=== PATIENT | male | born 1965 | race Hispanic/Latino ===

== ENCOUNTER 2025-05-02 11:36 | Inpatient (IN) | payer BC, OTHER ==
[2025-05-02] VITALS (17 sets, daily range): BP systolic 154–199; BP diastolic 68–95; PULSE 104–113; RESP 14–29; TEMP 99.1; O2SAT 98
[~2025-05-02] VITALS: Ht 160 cm; Wt 67.0 kg
[2025-05-02 12:41] LABS: IMMATURE GRANULOCYTE ABSOLUTE 0.39 K/uL (0-1); NUCLEATED RED BLOOD CELLS 0.1 % (0.0-0.19); PLATELET COUNT (AUTO) 329 K/uL (130-400); RED BLOOD CELL COUNT(AUTO) 2.34 MIL/uL (4.50-6.20); RED CELL DISTRIBUTION WIDTH 15.6 % (11.0-15.5)
[2025-05-02] MEDS: 0.9%NACL 1000ML 1,000 ML IV ONE (12:58)
[2025-05-02 12:59] LABS: ASPARTATE AMINOTRANSFERASE 27.0 U/L (10-37); CREATINE KINASE, TOTAL 105.0 U/L (21-232); GLOMERULAR FILTR. RATE CALC 6.0 mL/min (>90); GLUCOSE,RANDOM 79.0 mg/dL (70-105); SODIUM SERUM 139.0 mmol/L (136-145); TOTAL PROTEIN, SERUM 6.3 g/dL (6.0-8.3)
[2025-05-02 13:07] LABS: CREATININE 9.0 mg/dL (0.5-1.3); UREA NITROGEN, BLOOD 127.0 mg/dL (7-18)
[2025-05-02 13:17] LABS: WHITE BLOOD COUNT (AUTO) 64.0 K/uL (4.8-10.8)
[2025-05-02 13:31] LABS: BAND NEUTROPHILS % (MANUAL) 1 % (0-2); LYMPHOCYTES % (MANUAL) 77 % (22-44); MAN.DIFF COMMENT-IMPRESSION MANUAL DIFFERENTIAL; MONOCYTES % (MANUAL) 2 % (2-9); SEGMENTED NEUTROPHILS % 20 % (40-70)
[2025-05-02 13:32] LABS: PLATELET MORPHOLOGY COMMENT ADEQUATE; WBC MORPHOLOGY SMUDGE CELLS 2+
[2025-05-02 13:36] LABS: APPEARANCE,URINE CLOUDY (CLEAR); GLUCOSE, URINE (UA) NEGATIVE (NEGATIVE); LEUKOCYTE ESTERASE ,URINE NEGATIVE Leu/uL (NEGATIVE); NITRATE,URINE NEGATIVE (NEGATIVE); OCCULT BLOOD,URINE +- (TRACE) (NEGATIVE)
[2025-05-02 13:56] LABS: ADD UA MICROSCOPIC YES
--- NOTE | 2025-05-02 13:58 | HMCIMG ---
EXAM: CR Chest, 1 View. CLINICAL HISTORY: [facility] COMPARISON: None provided. FINDINGS: LUNGS: There is no mass, infiltrate, or acute pulmonary abnormality. PLEURAL SPACES: No pleural effusion or pneumothorax. MEDIASTINUM: Cardiac size and mediastinal contours within normal limits. BONES: No acute osseous abnormality. IMPRESSION: No acute cardiopulmonary pathology is evident. /[place]
[2025-05-02] MEDS ORDERED: GLUCAGON 1MG KIT 1 MG ML IM PRN (14:30)
[2025-05-02 14:44] LABS: ABG OXYGEN SATURATION 91.3 % (94.0-98.0); BASE EXCESS,VENOUS BLOOD GAS -15.2 (-2.0-3.0); HCO3,VENOUS BLOOD GAS 10.1 (22.0-29.0); PCO2,VENOUS BLOOD GAS 22 (38-54); PH,VENOUS BLOOD GAS 7.275 (7.320-7.430); PO2,VENOUS BLOOD GAS 65.5 mmHg (23.0-48.0); TEMPERATURE, CELSIUS BG 37.0 CELSIUS (35.5-37.0); VENT MODE, BG VBG (ROOM AIR)
[2025-05-02 14:46] LABS: INR 1.0 (0.85-1.15)
[2025-05-02 14:49] LABS: LACTATE DEHYDROGENASE 270.0 U/L (81-234); PHOSPHORUS 8.1 mg/dL (2.5-4.9)
[2025-05-02] MEDS: DEXTROSE 50%-WATER 50 ML DISP.SYRIN IV PRN (14:55)
[2025-05-02] MEDS: THIAMINE HCL 100 MG/ML 2ML VIAL IVP SCH (14:56)
[2025-05-02] MEDS: ZOSYN 3.375GM +NS 50ML IV STA (14:56)
[2025-05-02] MEDS ORDERED: PHARMACY COMMUNICATION MISC SCH (15:00)
--- NOTE | 2025-05-02 15:00 | NUR ---
REPORT GIVEN TO CURTIS RODRIGUEZ RN PENDING HEMATOLOGY CALL BACK
[2025-05-02 15:08] LABS: CREATININE,URINE RANDOM 72.92 mg/dL (30-135)
[2025-05-02] MEDS ORDERED: GLIP5TAB15 PO (15:30)
[2025-05-02] MEDS ORDERED: TAMS-55 PO (15:30)
[2025-05-02] MEDS ORDERED: TORS20TA4 PO (15:30)
[2025-05-02] MEDS ORDERED: LINEZOLID 600 MG/ISO-OSM 300 ML IV SCH (15:30)
[2025-05-02] MEDS ORDERED: CLOP-31 PO (15:30)
[2025-05-02] MEDS ORDERED: ATOR40TA69 PO (15:30)
[2025-05-02] MEDS: SODIUM BICARB 8.4% 50ML SYRING 150 MEQ in DEXTROSE 5%-WATER 1,000 ML IVP SCH (15:34)
[2025-05-02 16:11] LABS: IMMATURE GRANULOCYTE ABSOLUTE 0.30 K/uL (0-1); NUCLEATED RED BLOOD CELLS 0.1 % (0.0-0.19); PLATELET COUNT (AUTO) 290 K/uL (130-400); RED BLOOD CELL COUNT(AUTO) 2.11 MIL/uL (4.50-6.20); RED CELL DISTRIBUTION WIDTH 15.7 % (11.0-15.5)
[2025-05-02 16:15] LABS: WHITE BLOOD COUNT (AUTO) 53.9 K/uL (4.8-10.8)
[2025-05-02 16:23] LABS: ERYTHROCYTE SEDIMENTATION RATE 2 MM/HR (0-20)
[2025-05-02 16:40] LABS: BAND NEUTROPHILS % (MANUAL) 4 % (0-2); EOSINOPHILS % (MANUAL) 1 % (1-6); LYMPHOCYTES % (MANUAL) 83 % (22-44); MAN.DIFF COMMENT-IMPRESSION MANUAL DIFFERENTIAL; PLATELET MORPHOLOGY COMMENT ADEQUATE; SEGMENTED NEUTROPHILS % 12 % (40-70)
[2025-05-02 16:41] LABS: WBC MORPHOLOGY SMUDGE CELLS 2+
--- NOTE | 2025-05-02 16:41 | HMCIMG ---
EXAM: CT Abdomen and Pelvis without Intravenous Contrast CLINICAL HISTORY: Acute on chronic renal failure, severe leukocystosis, concern for sepsis. TECHNIQUE: Axial computed tomography images of the abdomen and pelvis without intravenous contrast. Dose reduction technique was used including one or more of the following: automated exposure control, adjustment of mA and kV according to patient size, and/or iterative reconstruction. CONTRAST: None. COMPARISON: None provided. FINDINGS: LUNG BASES: No basilar airspace consolidation or pleural effusion. LIVER: Liver is normal in size measuring 9 cm in CC dimension. No focal or diffuse hepatic lesion seen. GALLBLADDER AND BILE DUCTS: Unremarkable. No calcified stone. No ductal dilation. PANCREAS: Unremarkable. SPLEEN: Spleen is normal in size with splenic index of 360. ADRENAL GLANDS: Unremarkable. KIDNEYS, URETERS, AND BLADDER: Bilateral kidneys are normal in size. Few small calculi are noted in right kidney at upper and mid pole of about 2-3 mm. Few calculi are seen in left kidney of 2-3 mm, with largest in left pelviureteric junction measures about 4.2 mm. Mild perinephric fat strandings are seen. No hydronephrosis. No bladder calculi. STOMACH AND BOWEL: Mild short segment circumferential thickening of descending colon is noted with single wall thickness measuring upto 8.2 mm. No obstruction. No CT evidence of colitis or acute diverticulitis. APPENDIX: No CT evidence for appendicitis. PERITONEUM: No free fluid. No free air. LYMPH NODES: Multiple enlarged discrete and conglomerate emilia masses are seen throughout the central abdomen, more concentrated in the para-aortic and paracaval regions where these forming confluent emilia masses. Nodes are homogeneous in attenuation, without central necrosis or calcification. Cranial extent of the para-aortic conglomerate masses starts just at the level of origin of renal vessels with caudal extent till aortic bifurcation. The emilia conglomerates measure approximately 12.4 cm on right and 13.0 cm on left para-aortic region in craniocaudal extent, and 6.5 x 5.6 cm on right and 6.5 x 5.2 cm on left in AP x TR dimensions, indicating bulky disease. Multiple other discrete enlarged abdominal and retroperitoneal lymph nodes are also demonstrated, largest in gastrohepatic ligament measures 2.4 cm, at nima hepatis 2.6 cm, retropancreatic 1.5 cm, along right common iliac 2.3 cm, left common iliac 2.6 cm, right external iliac 1.7 cm and left external iliac 4.3 cm in short axis dimension. Multiple mesenteric lymph nodes are seen, largest in short axis measures 2.6 cm. Distribution is typical for lymphoma, involving the retroperitoneal emilia chains and extending inferiorly toward the iliac regions. The mass effect displaces adjacent structures but does not show invasive destruction, which further supports a lymphomatous process. No obvious organ invasion is seen. Solid organs appear relatively preserved. The imaging appearance is most suggestive of bulky retroperitoneal emilia disease, highly compatible with lymphoma likely non-Hodgkin lymphoma rather than metastatic adenopathy, given the size, homogeneity, and emilia distribution. REPRODUCTIVE: Unremarkable as visualized. VASCULATURE: Thick atheromatous intimal calcified plaques are seen involving descending abdominal aorta and its bifurcation. No aortic aneurysm. ABDOMINAL WALL AND SOFT TISSUES: Unremarkable. BONES: Anterior wedge compression fracture of T12 is seen. Degenerative changes with vacuum phenomenon noted at L4-L5 and L5-S1 levels. IMPRESSION: 1. Bulky retroperitoneal, mesenteric, gastrohepatic/nima hepatis, and iliac emilia disease, highly compatible with lymphoproliferative disorder with possible differential of lymphoma (e.g., non-Hodgkin lymphoma) rather than metastatic adenopathy, given the size, homogeneity, and emilia distribution. Contrast enhanced CT chest abdomen pelvis and histopathology correlation is suggested. 2. Mild short segment circumferential thickening of the descending colon, likely indicative of focal colitis. 3. Compression fracture of T12. 4. Degenerative changes with vacuum phenomenon at L4-L5 and L5-S1. 5. Bilateral renal calculi with perinephric fat strandings. /[place]
--- NOTE | 2025-05-02 16:48 | ERN ---
ED Note History of Present Illness Stated Complaint: SEVERE LEUKOCYTOSIS, CECILY ON CKD, EMTABOLIC ACIDOSI Chief Complaint: Hypoglycemia Time Seen by MD: 11:37 Dictation: 59 year-old male presenting to the emergency department with generalized weakness and low blood sugar by EMS patient reports he is a non-insulin dependent diabetic who has not been feeling well for the past few weeks and at worse this morning having chills generalized weakness Allergies: Coded Allergies: No Known Drug Allergies (Unverified Allergy, Unknown, 12/27/15) Home Meds Reported Medications Torsemide (Torsemide) 20 Mg Tablet, 1 TAB PO DAILY for 30 Days, #30 TAB 0 Refills 05/02/25 Glipizide (Glipizide) 5 Mg Tablet, 2 TAB PO DAILY for 30 Days, #30 TAB 0 Refills 05/02/25 Tamsulosin HCl (Flomax) 0.4 Mg Cap.er.24h, 0.4 MG PO DAILY, CAPSULE.DR 05/02/25 Clopidogrel Bisulfate (Plavix) 75 Mg Tablet, 1 TAB PO DAILY for 30 Days, #30 TAB 0 Refills 05/02/25 Atorvastatin Calcium (LIPITOR) 40 Mg Tablet, 1 TAB PO DAILY for 30 Days, #30 TAB 0 Refills 05/02/25 Past Medical History Past Medical History: Diabetes-Type II, High Cholesterol, Hypertension Surgical History: None Review of System Dictation Constitutional: Per HPI Eyes: Negative for injury, pain,redness, and discharge ENT: Negative for injury,pain or swelling Cardiovascular: Negative for chest pain, palpitations, and edema Respiratory: Negative for shortness of breath, cough, and wheezing, Abdomen/GI: Negative for abdominal pain, nausea, vomiting, diarrhea, and constipation Back: Negative for injury and pain : Negative for injury, bleeding and discharge MS/Extremity: Negative for injury and deformity Skin: Negative for rash, and discoloration Neuro: Per HPI Initial Vital Sign VS Vital Signs Date Time Temp Pulse Resp B/P (MAP) Pulse Ox O2 Delivery O2 Flow Rate FiO2 05/02/25 11:38 98.2 120 18 177/79 98 Room Air 0 05/02/25 12:40 21 Physical Exam Dictation General: awake, alert, appears ill, afebrile Head/Face: Normocephalic, atraumatic Eyes: PERRL, EOMI, vision at baseline ENT: oral cavity clear, TMs clear, no signs of infection Neck: Trachea midline, supple, no nuchal rigidity Cardiovascular: RRR, normal S1/S2, No MRGs, no JVD Respiratory: CTAB, no respiratory distress, No rales or wheezes Abdomen: Soft, non-tender, non-distended, normal bowel sounds, no guarding or rebound. Skin: Warm, dry, normal turgor, no rash MS/Extremity: Pulses equal, no cyanosis, neurovascular intact, FROM Neuro: COAx4, GCS 15, strength 5/5, CN 2-12 intact, normal cerebellar exam, no rmal gait, Psych: Normal behavior, mood, and affect normal Results (Laboratory/Radiology) Laboratory/Radiology Laboratory Tests Test 05/02/25 11:39 05/02/25 12:37 05/02/25 13:20 05/02/25 14:19 Whole Blood Glucose 103 MG/DL (70-110) 35 MG/DL (70-110) #*L Bedside Glucose Comment Notified Nurse White Blood Count 64.0 K/uL (4.8-10.8) *H Red Blood Count 2.34 MIL/uL (4.50-6.20) L Hemoglobin 7.2 g/dL (14.0-18.0) L Hematocrit 23.2 % (42-54) L Mean Corpuscular Volume 99.1 fL (79-99) H Mean Corpuscular Hemoglobin 30.8 pg (27.0-33.0) Mean Corpuscular Hemoglobin Concent 31.0 g/dL (32.0-36.0) L Red Cell Distribution Width 15.6 % (11.0-15.5) H Platelet Count 329 K/uL (130-400) Mean Platelet Volume 8.7 fL (7.5-10.5) Immature Granulocyte % (Auto) 0.6 % (0-1) Neutrophils (%) (Auto) 11.4 % (40.0-77.0) L Lymphocytes (%) (Auto) 82.1 % (21.0-51.0) H Monocytes (%) (Auto) 5.5 % (3.0-13.0) Eosinophils (%) (Auto) 0.3 % (0.0-8.0) Basophils (%) (Auto) 0.1 % (0.0-5.0) Neutrophils # (Auto) 7.3 K/uL (1.8-7.7) Lymphocytes # (Auto) 52.6 K/uL (1.0-4.8) H Monocytes # (Auto) 3.6 K/uL (0.1-1.0) H Eosinophils # (Auto) 0.17 K/uL (0.00-0.70) Basophils # (Auto) 0.05 K/uL (0.00-0.20) Absolute Immature Granulocyte (auto 0.39 K/uL (0-1) Segmented Neutrophils % 20 % (40-70) L Band Neutrophils % 1 % (0-2) Lymphocytes % (Manual) 77 % (22-44) H Monocytes % (Manual) 2 % (2-9) Nucleated Red Blood Cells 0.1 % (0.0-0.19) Differential Comment MANUAL DIFFERENTIAL White Cell Morphology Comment SMUDGE CELLS 2+ Platelet Morphology Comment ADEQUATE Red Blood Cell Morphology See comments Prothrombin Time 10.6 SEC (9.6-11.6) Prothromb Time International Ratio 1.00 (0.85-1.15) Activated Partial Thromboplast Time 24.9 SEC (26.3-35.5) L Fibrinogen 409 mg/dL (180-350) H D-Dimer Quantitative (PE/DVT) 857 ng/mL (0-500) *H Sodium Level 139 mmol/L (136-145) Potassium Level 5.2 mmol/L (3.5-5.1) H Chloride Level 109 mmol/L (101-111) Carbon Dioxide Level 13 mmol/L (21-32) L Blood Urea Nitrogen 127 mg/dL (7-18) *H Creatinine 9.0 mg/dL (0.5-1.3) *H Glomerular Filtration Rate Calc 6 mL/min (>90) Random Glucose 79 mg/dL (70-105) Lactic Acid Level 1.0 mmol/L (0.8-2.5) Uric Acid 9.5 mg/dL (2.6-7.2) H Total Calcium 8.2 mg/dL (8.5-10.1) L Phosphorus Level 8.1 mg/dL (2.5-4.9) H Total Bilirubin 0.3 mg/dL (0.2-1.0) Direct Bilirubin 0.1 mg/dL (0.0-0.3) Aspartate Amino Transf (AST/SGOT) 27 U/L (10-37) Alanine Aminotransferase (ALT/SGPT) 24 U/L (12-78) Alkaline Phosphatase 121 U/L (50-136) Lactate Dehydrogenase 270 U/L (81-234) H Total Creatine Kinase 105 U/L (21-232) # Troponin I High Sensitivity 50 ng/L (4-75) C-Reactive Protein, Quantitative 0.90 mg/L (0.5-3.0) Total Protein 6.3 g/dL (6.0-8.3) Albumin 3.5 g/dL (3.5-5.0) Procalcitonin 0.19 ng/mL (0.05-0.5) Urine Color COLORLESS (YELLOW) Urine Appearance CLOUDY (CLEAR) H Urine pH 5.5 (5.0-8.0) Urine Specific [place] 1.010 (1.001-1.031) Urine Protein 70 mg/dL (NEGATIVE) H Urine Glucose (UA) NEGATIVE mg/dL (NEGATIVE) Urine Ketones NEGATIVE mg/dL (NEGATIVE) Urine Occult Blood +- (TRACE) (NEGATIVE) H Urine Nitrate NEGATIVE (NEGATIVE) Urine Bilirubin NEGATIVE mg/dL (NEGATIVE) Urine Urobilinogen 0.2 mg/dL (0.2-1.0) Urine Leukocyte Esterase NEGATIVE Rogelio/uL Urine RBC 2-5 /HPF (0-1) H Urine WBC 2-5 /HPF (0-1) H Urine Bacteria None /HPF (None Seen) Urine Random Creatinine 72.92 mg/dL (30-135) Urine Random Sodium 45 mmol/l (40-220) Test 05/02/25 14:42 05/02/25 15:36 05/02/25 16:00 Blood Gas Specimen Type Venous Arterial Blood Oxygen Saturation 91.3 % (94.0-98.0) L Venous Blood pH 7.275 (7.320-7.430) Venous Blood pCO2 at Patient Temp 22 (38-54) L Venous Blood pO2 at Patient Temp 65.5 mmHg (23.0-48.0) H Venous Blood HCO3 10.1 (22.0-29.0) L Venous Blood Base Excess -15.2 (-2.0-3.0) L Venous Blood Total Hemoglobin 7.5 (13.5-17.5) L Sodium (Blood Gas) 139 MMOL/L (136-145) Bedside Potassium (Blood Gas) 5.2 MMOL/L (3.4-4.5) H Bedside Chloride (Blood Gas) 118 MMOL/L (98-107) H Bedside Glucose (Blood Gas) 38 MG/DL (65-95) *L Bedside Ionized Calcium (Blood Gas) 1.12 MMOL/L (1.15-1.33) L Bedside Lactic Acid (Blood Gas) 0.90 MMOL/L (0.36-0.75) H Blood Gas Temperature 37.0 CELSIUS (35.5-37.0) Blood Gas Vent Mode VBG (ROOM AIR) FiO2 21.0 % Blood Gas Specimen Comment VBGJULIE Whole Blood Glucose 133 MG/DL (70-110) #H Bedside Glucose Comment Notified Nurse White Blood Count 53.9 K/uL (4.8-10.8) *H Red Blood Count 2.11 MIL/uL (4.50-6.20) L Hemoglobin 6.6 g/dL (14.0-18.0) *L Hematocrit 21.0 % (42-54) *L Mean Corpuscular Volume 99.5 fL (79-99) H Mean Corpuscular Hemoglobin 31.3 pg (27.0-33.0) Mean Corpuscular Hemoglobin Concent 31.4 g/dL (32.0-36.0) L Red Cell Distribution Width 15.7 % (11.0-15.5) H Platelet Count 290 K/uL (130-400) Mean Platelet Volume 8.9 fL (7.5-10.5) Immature Granulocyte % (Auto) 0.6 % (0-1) Neutrophils (%) (Auto) 11.2 % (40.0-77.0) L Lymphocytes (%) (Auto) 82.4 % (21.0-51.0) H Monocytes (%) (Auto) 5.5 % (3.0-13.0) Eosinophils (%) (Auto) 0.2 % (0.0-8.0) Basophils (%) (Auto) 0.1 % (0.0-5.0) Neutrophils # (Auto) 6.0 K/uL (1.8-7.7) Lymphocytes # (Auto) 44.4 K/uL (1.0-4.8) H Monocytes # (Auto) 3.0 K/uL (0.1-1.0) H Eosinophils # (Auto) 0.11 K/uL (0.00-0.70) Basophils # (Auto) 0.06 K/uL (0.00-0.20) Absolute Immature Granulocyte (auto 0.30 K/uL (0-1) Nucleated Red Blood Cells 0.1 % (0.0-0.19) Erythrocyte Sedimentation Rate 2 MM/HR (0-20) Labs Reviewed?: Yes EKG: (+) NSR, (+) rhythm, (+) nonspecific ST T wave chg, (+) nonspecific ST T wave chg, (+) unchanged EKG Comment: Heart rate 112 sinus tachycardia no STEMI X-RAY Comment: Clear chest x-ray no acute process noted ED Course ED Course Orders Procedure Category Date Status Time 12 Lead Ekg Tracing- EKG 05/02/25 Logged Technical 12:05 Basic Metabolic Panel LAB 05/02/25 Complete 12:05 Blood Cult PATRICIA 05/02/25 In Process 12:05 Cbc With Differential LAB 05/02/25 In Process 12:05 Hepatic Function Panel LAB 05/02/25 Complete 12:05 Creatine Kinase, Total LAB 05/02/25 Complete 12:05 Lactic Acid LAB 05/02/25 Complete 12:05 Troponin I High LAB 05/02/25 Complete Sensitivity 12:05 Urinalysis Profile LAB 05/02/25 Complete 12:05 Chest 1vw RAD 05/02/25 Resulted 12:05 0.9%Nacl 1000ml (Ns PHA 05/02/25 Complete 1000ml) 12:30 Manual Differential LAB 05/02/25 In Process 12:37 Zosyn 3.375gm+Ns 50ml PHA 05/02/25 Complete (Zosyn 3.375gm+Ns 13:35 Admit Orders ADM 05/02/25 Transmitted 14:27 Initiate Hypoglycemia PAULETTE 05/02/25 In Process Protocol 14:27 Dextrose 50%-Water PHA 05/02/25 In Process (D50w) 14:30 Glucagon 1mg Kit PHA 05/02/25 In Process (Glucagon 1mg Kit) 14:30 Thiamine Hcl (Vitamin PHA 05/02/25 In Process B-1) 14:30 Cbc With Differential LAB 05/02/25 In Process 14:29 Pt And Ptt LAB 05/02/25 Complete 14:29 Erythrocyte Sed Rate LAB 05/02/25 In Process 14:29 Crp Quantitative LAB 05/02/25 Complete 14:29 Procalcitonin LAB 05/02/25 Complete 14:29 Lactate Dehydrogenase LAB 05/02/25 Complete 14:29 Uric Acid LAB 05/02/25 Complete 14:29 Phosphorus LAB 05/02/25 Complete 14:29 Type And Screen BBK 05/02/25 In Process 14:32 Nephrology Consult CONPHYS 05/02/25 Transmitted 14:33 Hematology Consult CONPHYS 05/02/25 Transmitted 14:33 Dextrose 5%-Water PHA 05/02/25 In Process (... W/Sodium Bicarb 8 15:00 Venous Blood Gas + RT 05/02/25 Transmitted 14:34 Critcal Care Consult [facility] 05/02/25 Transmitted 14:35 Hemoglobin And LAB 05/02/25 Logged Hematocrit 19:00 Hemoglobin And LAB 05/03/25 Verified Hematocrit 01:00 Pantoprazole 40mg Inj PHA 05/02/25 In Process (Protonix 40mg Inj 15:00 Pharmacy PHA 05/02/25 Complete Communication 15:00 Fibrinogen LAB 05/02/25 Complete 14:41 D-Dimer LAB 05/02/25 Complete 14:41 Hydralazine 20mg Inj PHA 05/02/25 In Process (Apresoline 20mg In 15:00 *Nursing CPOE 05/02/25 Transmitted Communication: 14:42 Venous Blood Gas Plus LAB 05/02/25 Complete 14:42 Acetaminophen 325 Tab PHA 05/02/25 In Process (Tylenol 325mg Tab 15:00 Ondansetron 4mg Inj PHA 05/02/25 In Process (Zofran 4mg Inj) 15:00 Us Renal Sonogram US 05/02/25 Taken 14:44 Urine Sodium,Random LAB 05/02/25 Complete 14:44 Urine Creatinine LAB 05/02/25 Complete Random 14:44 Urea Nitrogen, Urine LAB 05/02/25 In Process Random 14:44 *Nursing CPOE 05/02/25 Transmitted Communication: 14:46 Folic Acid/Vitamin B PHA 05/03/25 In Process Comp W-C (Nephrovit 09:00 Daily Fluid Intake CPOE 05/02/25 Transmitted Restriction 14:46 Strict I&O CPOE 05/02/25 Transmitted 14:46 Daily Weights CPOE 05/02/25 Transmitted 14:46 Aleida (Direct) BBK 05/02/25 Complete 14:48 Vital Signs(Adult CPOE 05/02/25 Transmitted Hospitalist) 14:51 Oxygen By Nc/Pulse Ox CPOE 05/02/25 Transmitted 14:51 I&O Q Shift CPOE 05/02/25 Transmitted 14:51 Nurse To Enter Home CPOE 05/02/25 Transmitted Medication 14:51 Condition: CPOE 05/02/25 Transmitted 14:51 Telemetry Monitoring CPOE 05/02/25 Transmitted 14:51 Activity: Bed Rest CPOE 05/02/25 Transmitted 14:51 Clear Liquid DIET 05/02/25 Transmitted Dinner Apply Scds CPOE 05/02/25 Transmitted 14:51 Ct Abdomen/Pelvis W/O CT 05/02/25 Taken Contrast 14:51 Linezolid 600 PHA 05/02/25 Complete Mg/Iso-Osm (Zyvox 600 15:30 Meropenem 1gm (Merrem PHA 05/02/25 In Process 1gm) 18:00 Linezolid 600 PHA 05/02/25 In Process Mg/Iso-Osm (Zyvox 600 19:00 Nurse Driven Doss PAULETTE 05/02/25 In Process Removal Pro 16:10 Maintain Doss CPOE 05/02/25 Transmitted 16:10 Tamsulosin Hcl PHA 05/02/25 In Process (Flomax) 16:30 Atorvastatin 40mg PHA 05/03/25 In Process (Lipitor 40mg) 09:00 Manual Differential LAB 05/02/25 In Process 16:00 Current Medications Medications (Trade) Dose Ordered Sig/Álvaro Route PRN Reason Start Time Stop Time Status Last Admin Dose Admin Piperacillin Sod/ Tazobactam Sod (Zosyn 3.375gm+NS 50ml) 3.375 gm ONCE STAT IV 05/02/25 13:35 05/02/25 13:41 DC 05/02/25 14:56 Sodium Chloride 1,000 ml @ 0 mls/hr ONCE ONCE IV 05/02/25 12:30 05/02/25 12:31 DC 05/02/25 12:58 Vital Signs Date Time Temp Pulse Resp B/P (MAP) Pulse Ox O2 Delivery O2 Flow Rate FiO2 05/02/25 15:02 98.6 120 18 140/83 98 Room Air* 0 05/02/25 14:41 98.6 118 18 123/79 98 Room Air* 0 05/02/25 13:27 98.6 125 18 142/95 99 Room Air* 0 05/02/25 12:40 98.2 120 18 145/67 99 Room Air* 0 05/02/25 11:38 98.2 120 18 177/79 98 Room Air 0 Medical Decision Making MDM MDM: Differential diagnosis: Rationale: Tests considered and ordered secondary to shared decision making include: labs, ECG and radiology Previous outside records reviewed: Old ER visits. Risk of complication and/or morbidity or mortality of patient management: None Medications-Per medication reconciliation Need for hospitalization: Patient does meet criteria for hospitalization. Need for emergency major/minor surgery: No There are no social concerns with this patient. Prescription drug management Prescriptions will include symptomatic care Patient's prior external medical records from other ER visits were reviewed by me as indicated. Prior testing and results from previous visits were reviewed. Prior tests were taken into account with medical decision making and resource utilization, independent historian/historians were used to obtain complete medical history. I independently interpreted the test that were performed, results were reviewed by me and considered findings on radiology if ordered. Medical management and examination interpretation discussions were had by me with other qualified healthcare professionals as indicated for the patient's care. 59-year-old [place], [place] [id number] concern for blast crisis versus severe sepsis, started on IV fluids antibiotics admitting for further care and evaluation hospitalist team consulted. Critical Care Note Comment(s) Total critical care time was 33 minutes. Excluding time for procedures. Management of critically ill patient with concern for acute decompensation. Management included interpretation of laboratory values and imaging, hemodynamics, time for consultation with consultants and admitting physician. DX & DISP Disposition: Inpatient Departure Impression: Primary Impression: SIRS (systemic inflammatory response syndrome) Additional Impressions: Acute renal failure, Leukocytosis Condition: Stable Referrals: MOR SCOTT (PCP) LEIDA ARIZA MD May 02, 2025 16:48
--- NOTE | 2025-05-02 17:17 | HP ---
[facility] HISTORY AND PHYSICAL Date of Service: May 02, 2025 Time of Service: 17:03 HISTORY OF PRESENT ILLNESS: Date of service: 05/02/2025, patient was seen in ER [facility] This is a 59-year-old male with underlying history of chronic kidney disease, previous history of CLL in 2017 status post chemotherapy in [place], [place], history of stroke in 2016 on chronic outpatient treatment with Plavix, type 2 d iabetes mellitus, BPH, hyperlipidemia, who presented to the ER for further evaluation of generalized malaise and low blood sugar. Patient states that he was feeling weak today and EMS was called who noticed that his blood sugar was in the 40s. Patient was brought to the ER for further evaluation of severe hypoglycemia. Patient feels that he has been having malaise and not feeling well today. He takes glipizide 5 mg b.i.d. for management of type 2 diabetes mellitus. He gets about 1-2 episodes of hypoglycemia in a month. Patient reports having previous history of CLL which was treated in [place] previously with chemotherapy. He is currently followed by Dr. Forde with Hematology as outpatient. Patient denies episodes of active bleeding, denies melena, hematochezia or hematemesis. Denies any hematuria. Denies any dysuria either. [place] [id number] [place] September of this year on follow up as outpatient with Hematology. Patient has underlying history of CKD and is followed by Dr. Llanos as outpatient. He has been maintained on torsemide 20 mg daily. On presentation to the hospital, patient was noted to be afebrile with T-max of 98.2 F, heart rate of 120, blood pressure 177/79. Labs on presentation [place] [address] which was [place] [id number] with significant lymphocytosis close to 82%. Hemoglobin was noted to be at 6.6 on repeat labs and platelet count of [id number]. Coagulation panel was noted to be normal. BMP on presentation significant for sodium 139, potassium 5.2, chloride of 109, bicarb 13, BUN of 127, creatinine 9.0, uric acid was noted to be elevated at 9.5 with phosphorus 8.1, LDH of 270. Patient will be admitted for further management of acute on chronic renal failure with significant leukocytosis, progressive anemia. and underlying metabolic acidosis. Patient will be admitted to ICU and condition remains critical. We will request urgent consultation with Hematology for further evaluation. Patient will recei ve PRBC transfusion, broad-spectrum antibiotics and we will be initiated on sodium bicarb gtt. REVIEW OF SYSTEMS CONSTITUTIONAL: Malaise, chills and low sugars NEUROLOGICAL: Denies headache, amaurosis fugax, motor weakness, sensory deficit, vertigo/spinning sensation, gait abnormalities, or tremors. ENT: No hearing loss, otalgia, otorrhea, rhinitis, rhinorrhea, hoarseness, or sore throat. CARDIOVASCULAR: Denies any exertional angina, dyspnea on exertion, orthopnea, paroxysmal nocturnal dyspnea, palpitations, life-threatening arrhythmias, claudication. PULMONARY: Denies any shortness of breath, cough, phlegm/sputum, hemoptysis, pleuritic chest pain. SLEEP: Denies morning headaches, daytime somnolence or napping. Denies difficulty falling asleep, staying asleep, waking from sleep. Denies knowledge of snoring. GASTROINTESTINAL: Denies any type of dysphagia to either liquids or solids. Denies nausea, vomiting, pyrosis, early satiety, abdominal pain, diarrhea, con stipation, or changes in stool consistency or caliber. Denies coffee-ground emesis, hematemesis, hematochezia, or melanotic stools. GENITOURINARY: Denies frequency, urgency, nocturia, hematuria or incontinence (Storage/Irritative symptoms.) Low urinary stream, straining to void, urinary intermittency or hesitancy, splitting of the voiding stream, terminal dribbling. ENDOCRINOLOGIC: Denies polyuria, polydipsia, polyphagia or heat/cold intolerances. HEMATOLOGIC: reports having hx of leukemia ONCOLOGIC: Denies personal history of malignancy. DERMATOLOGIC: Denies rashes or pruritus. PSYCHIATRIC: Denies any suicidal or homicidal ideation. Denies hallucinations. PAST MEDICAL HISTORY: Hypertension, hyperlipidemia, history of stroke in 2016, history of CLL diagnosed in 2017 status post chemotherapy in [place], type 2 diabetes mellitus PAST SURGICAL HISTORY: Patient denies history of previous major surgeries PAST SOCIAL HISTORY: Denies history of active smoking or alcohol consumption FAMILY HISTORY: Denies pertinent family history Allergies: No known drug allergies Home medications: Atorvastatin 40 mg daily, Plavix 75 mg daily, glipizide 5 mg twice daily, Flomax 0.4 mg daily, torsemide 20 mg daily Coded Allergies: No Known Drug Allergies (Unverified Allergy, Unknown, 12/27/15) PHYSICAL EXAM GENERAL APPEARANCE: The patient is awake, alert, and oriented, appears anxious NEUROLOGICAL: Cranial nerves II-XII grossly intact. Motor is 5/5 in bilateral upper and lower extremities proximal to distal. No sensory deficits. HEENT: Face is symmetric. Pupils are equal and reactive. Extraocular movements are intact. NECK: Supple. No JVD. No thyromegaly. No submental, submandibular, pre- /postauricular, occipital or supraclavicular lymphadenopathy. CHEST: Normal chest expansion. No Telemetry. LUNGS: Absence of any rales, rhonchi or any wheezing. CARDIOVASCULAR: Regular. S1 and S2 normal. No appreciable rubs, murmurs or gallops. ABDOMEN: Soft, nontender, and nondistended. There is no rebound, voluntary guarding, or rigidity. : Deferred. No Doss. EXTREMITIES: Non-edematous and not cyanotic. No clubbing. Good capillary refill. SKIN: No skin breakdown. Vital Sign (Last 24 Hours) 05/02/25 15:02 Temp 98.6 Pulse 120 Resp 18 B/P (MAP) 140/83 Pulse Ox 98 O2 Delivery Room Air* O2 Flow Rate 0 FiO2 21 LABS: Laboratory: Test 05/02/25 16:51 05/02/25 16:00 05/02/25 15:36 05/02/25 14:42 Range/Units Whole Blood Glucose 103 70-110 MG/DL White Blood Count 53.9 *H 4.8-10.8 K/uL Red Blood Count 2.11 L 4.50-6.20 MIL/uL Hemoglobin 6.6 *L 14.0-18.0 g/dL Hematocrit 21.0 *L 42-54 % Mean Corpuscular Volume 99.5 H 79-99 fL Mean Corpuscular Hemoglobin 31.3 27.0-33.0 pg Mean Corpuscular Hemoglobin Concent 31.4 L 32.0-36.0 g/dL Red Cell Distribution Width 15.7 H 11.0-15.5 % Platelet Count 290 130-400 K/uL Mean Platelet Volume 8.9 7.5-10.5 fL Immature Granulocyte % (Auto) 0.6 0-1 % Neutrophils (%) (Auto) 11.2 L 40.0-77.0 % Lymphocytes (%) (Auto) 82.4 H 21.0-51.0 % Monocytes (%) (Auto) 5.5 3.0-13.0 % Eosinophils (%) (Auto) 0.2 0.0-8.0 % Basophils (%) (Auto) 0.1 0.0-5.0 % Neutrophils # (Auto) 6.0 1.8-7.7 K/uL Lymphocytes # (Auto) 44.4 H 1.0-4.8 K/uL Monocytes # (Auto) 3.0 H 0.1-1.0 K/uL Eosinophils # (Auto) 0.11 0.00-0.70 K/uL Basophils # (Auto) 0.06 0.00-0.20 K/uL Absolute Immature Granulocyte (auto 0.30 0-1 K/uL Segmented Neutrophils % 12 L 40-70 % Band Neutrophils % 4 H 0-2 % Lymphocytes % (Manual) 83 H 22-44 % Eosinophils % (Manual) 1 1-6 % Nucleated Red Blood Cells 0.1 0.0-0.19 % Differential Comment MANUAL DIFFERENTIAL White Cell Morphology Comment SMUDGE CELLS 2+ Platelet Morphology Comment ADEQUATE Red Blood Cell Morphology See comments Erythrocyte Sedimentation Rate 2 0-20 MM/HR Bedside Glucose Comment Notified Nurse Blood Gas Specimen Type Venous Arterial Blood Oxygen Saturation 91.3 L 94.0-98.0 % Venous Blood pH 7.275 L 7.320-7.430 Venous Blood pCO2 at Patient Temp 22 L 38-54 Venous Blood pO2 at Patient Temp 65.5 H 23.0-48.0 mmHg Venous Blood HCO3 10.1 L 22.0-29.0 Venous Blood Base Excess -15.2 L -2.0-3.0 Venous Blood Total Hemoglobin 7.5 L 13.5-17.5 Sodium (Blood Gas) 139 136-145 MMOL/L Bedside Potassium (Blood Gas) 5.2 H 3.4-4.5 MMOL/L Bedside Chloride (Blood Gas) 118 H 98-107 MMOL/L Bedside Glucose (Blood Gas) 38 *L 65-95 MG/DL Bedside Ionized Calcium (Blood Gas) 1.12 L 1.15-1.33 MMOL/L Bedside Lactic Acid (Blood Gas) 0.90 H 0.36-0.75 MMOL/L Blood Gas Temperature 37.0 35.5-37.0 CELSIUS Blood Gas Vent Mode VBG ROOM AIR FiO2 21.0 % Blood Gas Specimen Comment VBGJULIE Test 05/02/25 13:20 05/02/25 12:37 Range/Units Urine Color COLORLESS YELLOW Urine Appearance CLOUDY H CLEAR Urine pH 5.5 5.0-8.0 Urine Specific [place] 1.010 1.001-1.031 Urine Protein 70 H NEGATIVE mg/dL Urine Glucose (UA) NEGATIVE NEGATIVE mg/dL Urine Ketones NEGATIVE NEGATIVE mg/dL Urine Occult Blood +- (TRACE) H NEGATIVE Urine Nitrate NEGATIVE NEGATIVE Urine Bilirubin NEGATIVE NEGATIVE mg/dL Urine Urobilinogen 0.2 0.2-1.0 mg/dL Urine Leukocyte Esterase NEGATIVE NEGATIVE Rogelio/uL Urine RBC 2-5 H 0-1 /HPF Urine WBC 2-5 H 0-1 /HPF Urine Bacteria None None Seen /HPF Urine Random Creatinine 72.92 30-135 mg/dL Urine Random Sodium 45 40-220 mmol/l Monocytes % (Manual) 2 2-9 % Prothrombin Time 10.6 9.6-11.6 SEC Prothromb Time International Ratio 1.00 0.85-1.15 Activated Partial Thromboplast Time 24.9 L 26.3-35.5 SEC Fibrinogen 409 H 180-350 mg/dL D-Dimer Quantitative (PE/DVT) 857 *H 0-500 ng/mL Sodium Level 139 136-145 mmol/L Potassium Level 5.2 H 3.5-5.1 mmol/L Chloride Level 109 101-111 mmol/L Carbon Dioxide Level 13 L 21-32 mmol/L Blood Urea Nitrogen 127 *H 7-18 mg/dL Creatinine 9.0 *H 0.5-1.3 mg/dL Glomerular Filtration Rate Calc 6 >90 mL/min Random Glucose 79 70-105 mg/dL Lactic Acid Level 1.0 0.8-2.5 mmol/L Uric Acid 9.5 H 2.6-7.2 mg/dL Total Calcium 8.2 L 8.5-10.1 mg/dL Phosphorus Level 8.1 H 2.5-4.9 mg/dL Total Bilirubin 0.3 0.2-1.0 mg/dL Direct Bilirubin 0.1 0.0-0.3 mg/dL Aspartate Amino Transf (AST/SGOT) 27 10-37 U/L Alanine Aminotransferase (ALT/SGPT) 24 12-78 U/L Alkaline Phosphatase 121 50-136 U/L Lactate Dehydrogenase 270 H 81-234 U/L Total Creatine Kinase 105 # 21-232 U/L Troponin I High Sensitivity 50 4-75 ng/L C-Reactive Protein, Quantitative 0.90 0.5-3.0 mg/L Total Protein 6.3 6.0-8.3 g/dL Albumin 3.5 3.5-5.0 g/dL Procalcitonin 0.19 0.05-0.5 ng/mL Current Medications Medications (Trade) Dose Ordered Sig/Álvaro Route PRN Reason Start Time Stop Time Status Last Admin Dose Admin Acetaminophen (TYLenol 325MG TAB) 650 mg Q6H PRN PO MILD PAIN (1-3) 05/02/25 15:00 06/01/25 14:59 Atorvastatin Calcium (LIPItor 40MG) 40 mg DAILY PO 05/03/25 09:00 06/02/25 08:59 Dextrose (D50w) 50 ml AD PRN IV HYPOGLYCEMIA PROTOCOL 05/02/25 14:30 06/01/25 14:29 05/02/25 14:55 50 ML Glucagon (Glucagon 1mg Kit) 1 mg AD PRN IM HYPOGLYCEMIA PROTOCOL 05/02/25 14:30 06/01/25 14:29 Hydralazine HCl (APRESOLine 20MG INJ) 10 mg Q6H PRN IV ADMINISTER FOR SBP > 160 05/02/25 15:00 06/01/25 14:59 Linezolid 300 ml @ 300 mls/hr Q12H IV 05/02/25 15:30 05/02/25 16:07 DC Linezolid 300 ml @ 300 mls/hr Q12H IV 05/02/25 19:00 05/12/25 18:59 Meropenem (Merrem 1gm) 1 gm Q24H IVPB 05/02/25 18:00 05/12/25 17:59 Ondansetron HCl (zoFRAN 4MG INJ) 4 mg Q6H PRN IVP NAUSEA/VOMITING 05/02/25 15:00 06/01/25 14:59 Pantoprazole Sodium (PROTonix 40MG INJ) 40 mg Q24H IVP 05/02/25 15:00 06/01/25 14:59 05/02/25 14:56 40 MG Pharmacy Profile Note (Pharmacy Communication) 1 each ONCE MISC 05/02/25 15:00 05/02/25 15:29 DC Piperacillin Sod/ Tazobactam Sod (Zosyn 3.375gm+NS 50ml) 3.375 gm ONCE STAT IV 05/02/25 13:35 05/02/25 13:41 DC 05/02/25 14:56 3.375 GM Sodium Bicarbonate 150 meq/Dextrose 1,150 ml @ 75 mls/hr [id number] IVP 05/02/25 15:00 06/01/25 14:59 05/02/25 15:34 75 MLS/HR Tamsulosin HCl (FloMAX) 0.4 mg Q24H PO 05/02/25 16:30 06/01/25 16:29 05/02/25 16:30 0.4 MG Thiamine HCl (Vitamin B-1) 100 mg Q24H IVP 05/02/25 14:30 06/01/25 14:29 05/02/25 14:56 100 MG Vitamin B Complex/ Vit C/Folic Acid (Nephrovite Tablet) 1 cap DAILY PO 05/03/25 09:00 06/02/25 08:59 DIAGNOSTICS / RADIOLOGY: SERVICE 1451 REASON: acute on chronic renal failure, severe leukocytosis, concern for sepsis ORDERING PHYSICIAN: FILIBERTO MEI MD PROCEDURE: ABD PEL WO - CT ABDOMEN/PELVIS W/O CONTRAST EXAM: CT Abdomen and Pelvis without Intravenous Contrast CLINICAL HISTORY: Acute on chronic renal failure, severe leukocystosis, concern for sepsis. TECHNIQUE: Axial computed tomography images of the abdomen and pelvis without intravenous contrast. Dose reduction technique was used including one or more of the following: automated exposure control, adjustment of mA and kV according to patient size, and/or iterative reconstruction. CONTRAST: None. COMPARISON: None provided. FINDINGS: LUNG BASES: No basilar airspace consolidation or pleural effusion. LIVER: Liver is normal in size measuring 9 cm in CC dimension. No focal or diffuse hepatic lesion seen. GALLBLADDER AND BILE DUCTS: Unremarkable. No calcified stone. No ductal dilation. PANCREAS: Unremarkable. SPLEEN: Spleen is normal in size with splenic index of 360. ADRENAL GLANDS: Unremarkable. KIDNEYS, URETERS, AND BLADDER: Bilateral kidneys are normal in size. Few small calculi are noted in right kidney at upper and mid pole of about 2-3 mm. Few calculi are seen in left kidney of 2-3 mm, with largest in left pelviureteric junction measures about 4.2 mm. Mild perinephric fat strandings are seen. No hydronephrosis. No bladder calculi. STOMACH AND BOWEL: Mild short segment circumferential thickening of descending colon is noted with single wall thickness measuring upto 8.2 mm. No obstruction. No CT evidence of colitis or acute diverticulitis. APPENDIX: No CT evidence for appendicitis. PERITONEUM: No free fluid. No free air. LYMPH NODES: Multiple enlarged discrete and conglomerate emilia masses are seen throughout the central abdomen, more concentrated in the para-aortic and paracaval regions where these forming confluent emilia masses. Nodes are homogeneous in attenuation, without central necrosis or calcification. Cranial extent of the para-aortic conglomerate masses starts just at the level of origin of renal vessels with caudal extent till aortic bifurcation. The emilia conglomerates measure approximately 12.4 cm on right and 13.0 cm on left para-aortic region in craniocaudal extent, and 6.5 x 5.6 cm on right and 6.5 x 5.2 cm on left in AP x TR dimensions, indicating bulky disease. Multiple other discrete enlarged abdominal and retroperitoneal lymph nodes are also demonstrated, largest in gastrohepatic ligament measures 2.4 cm, at nima hepatis 2.6 cm, retropancreatic 1.5 cm, along right common iliac 2.3 cm, left common iliac 2.6 cm, right external iliac 1.7 cm and left external iliac 4.3 cm in short axis dimension. Multiple mesenteric lymph nodes are seen, largest in short axis measures 2.6 cm. Distribution is typical for lymphoma, involving the retroperitoneal emilia chains and extending inferiorly toward the iliac regions. The mass effect displaces adjacent structures but does not show invasive destruction, which further supports a lymphomatous process. No obvious organ invasion is seen. Solid organs appear relatively preserved. The imaging appearance is most suggestive of bulky retroperitoneal emilia disease, highly compatible with lymphoma likely non-Hodgkin lymphoma rather than metastatic adenopathy, given the size, homogeneity, and emilia distribution. REPRODUCTIVE: Unremarkable as visualized. VASCULATURE: Thick atheromatous intimal calcified plaques are seen involving descending abdominal aorta and its bifurcation. No aortic aneurysm. ABDOMINAL WALL AND SOFT TISSUES: Unremarkable. BONES: Anterior wedge compression fracture of T12 is seen. Degenerative changes with vacuum phenomenon noted at L4-L5 and L5-S1 levels. IMPRESSION: 1. Bulky retroperitoneal, mesenteric, gastrohepatic/nima hepatis, and iliac emilia disease, highly compatible with lymphoproliferative disorder with possible differential of lymphoma (e.g., non-Hodgkin lymphoma) rather than metastatic adenopathy, given the size, homogeneity, and emilia distribution. Contrast enhanced CT chest abdomen pelvis and histopathology correlation is suggested. 2. Mild short segment circumferential thickening of the descending colon, likely indicative of focal colitis. 3. Compression fracture of T12. 4. Degenerative changes with vacuum phenomenon at L4-L5 and L5-S1. 5. Bilateral renal calculi with perinephric fat strandings. /[place] DICTATED BY: MIKE THOMAS MD DATE: 05/02/251739 ELECTRONICALLY SIGNED BY: MIKE THOMAS MD DATE: 05/02/251739 ASSESSMENT: Severe leukocytosis with lymphocytosis with history of chronic lymphocytic leukemia, POA Bulky intra-abdominal and retroperitoneal lymphadenopathy, POA Severe acute kidney injury with history of chronic kidney disease, POA Rule out tumor lysis syndrome, POA Acute on chronic anemia, POA Rule out occult sepsis, POA Severe hypoglycemia secondary to sulfonylurea use as outpatient, POA History of chronic kidney disease, POA History of type 2 diabetes mellitus, POA History of previous stroke maintained on chronic outpatient treatment with Plavix, POA Hypertension, POA Hyperlipidemia, POA PLAN: Patient will be admitted to ICU Consultation with Hematology will be requested urgently, patient's case was discussed with Dr. Maya on phone who is covering for Dr. Forde , plan is for patient to receive 1 unit of leuko reduced PRBC transfusion, Hematology will follow up in the morning, concern is for reoccurrence of chronic lymphocytic leukemia, patient with significant intra-abdominal lymphadenopathy as well, uric acid is significantly high, we will need to rule out tumor lysis syndrome, there was no hemolysis noted with Aleida test noted to be negative We will transfuse to maintain hemoglobin greater than seven Monitor closely for signs of active bleeding We will hold Plavix We will start patient on sodium bicarb drip at 75 mL/hours Doss catheter will be placed Avoid any nephrotoxic medication, avoid NSAIDs and IV contrast We will start patient on broad-spectrum antibiotics with linezolid and Merrem, antibiotics can be stopped a deescalated in 48-72 hours based on culture report, blood cultures will be obtained Abdominal CT shows findings of significant intra-abdominal and retroperitoneal lymphadenopathy, this could be secondary to reoccurrence of CLL, we will need to rule out high grade lymphoma especially Haines's transformation, as well We will request origin consultation with Nephrology, patient's case was discussed with Dr. Patel already Patient's case was discussed with ICU service, H&H and BMP will be trended closely Patient will receive a dose of Lokelma for management of hyperkalemia All labs will be repeated in the morning, we will see how patient progresses in the next 48-72 hours, we will follow up on further input of the consultants in the case Blood glucose will be monitored closely, glipizide to be stopped as outpatient due to underlying renal failure and concerns for sulfonylurea toxicity with advanced renal failure We will keep patient on GI prophylaxis with Protonix, DVT prophylaxis with SCDs Date of service: 05/02/2025 Condition remains critical, critical care minutes: 45 minutes Plan of care was discussed with patient and at bedside, Filiberto Mei MD Advanced Care Planning: Which of the following were discussed: Hospice care: Yes __ No _x_ Therapeutic options: Yes _x_ No __ Advance directives: Yes _x_ No __ Other discussions: Discussed with who?: Patient Voluntary nature of this service was explained to the patient? Yes _x_ No __ Amount of time spent: 20 minutes FILIBERTO MEI MD May 02, 2025 17:17
--- NOTE | 2025-05-02 17:27 | HMCIMG ---
EXAM: US Retroperitoneum, Renal. CLINICAL HISTORY: CECILY on CKD, r/o obstructive uropathy TECHNIQUE: Real-time ultrasound of the retroperitoneum with image documentation. COMPARISON: None provided. FINDINGS: RIGHT KIDNEY: The right kidney measures 8.9 x 4.8 x 3.5 cm. Normal in size and contour. No renal mass or calculus. No hydronephrosis. LEFT KIDNEY: The right kidney measures 9.9 x 4.3 x 3.7 cm Normal in size and contour. No renal mass or calculus. No hydronephrosis. BLADDER: The wall of the urinary bladder measures 2.3 mm. Unremarkable as visualized. MISCELLANEOUS: No other significant abnormality evident. IMPRESSION: 1. No acute renal or bladder abnormality. /Cecil
--- NOTE | 2025-05-02 18:00 | NUR ---
PER DR PALOMARES GIVE ONE AMP OF BICARD HOLD THE BICARBONATE BAG
--- NOTE | 2025-05-02 18:05 | EKG ---
[facility] Test Date: 2025-05-02 Test Time: 12:06:18 Pat Name: OSMIN ROQUE Department: [facility] Room: 206 Gender: M [employer] Consultant: [id number] : 1965 Requested By: LEIDA ARIZA Order Number: [id number] Reading MD: Francisco Fuentes Measurements Intervals [place] Rate: 112 P: 72 NM: 203 QRS: 17 QRSD: 78 T: 20 QT: 317 QTc: 433 Interpretive Statements Sinus tachycardia Compared to ECG 12/27/2015 10:03:56 Sinus rhythm no longer present Electronically Signed On 05-02-2025 21:53:04 UTILIZATION MANAGEMENT UM NURSE by Francisco Fuentes Please click the below link to view image of tracing.
[2025-05-02] MEDS: SODIUM BICARB 50MEQ 50ML VIAL IV ONE (18:19)
[2025-05-02] MEDS: NA ZIRCON CYCLOSIL(LOKELMA 10GM) PO ONE (18:23)
[2025-05-02 18:35] LABS: AMPHET/METH SCREEN,URINE NEGATIVE (NEGATIVE); BARBITURATE SCREEN, URINE NEGATIVE (NEGATIVE); CANNABINOID SCREEN,URINE NEGATIVE (NEGATIVE); COCAINE SCREEN,URINE NEGATIVE (NEGATIVE)
--- NOTE | 2025-05-02 18:35 | NUR ---
REPORT GIVEN TO MICHELINE
[2025-05-02] MEDS ORDERED: PHENAZOpyridine HCL 200 MG TAB 200 MG TABLET PO PRN (19:00)
--- NOTE | 2025-05-02 19:16 | NUR ---
PINEDA FRENCH AT BEDSIDE.
[2025-05-02] MEDS: LINEZOLID 600 MG/ISO-OSM 300 ML IV SCH (20:43)
[2025-05-02] MEDS: amLODIPine 5 MG TAB PO SCH (20:43)
--- NOTE | 2025-05-02 21:18 | CONS ---
[facility] CONSULTATION NOTE Date Patient Seen: May 02, 2025 Time of Visit: 21:04 Supervising Physician: Dr. Otoniel Titus Reason for Consultation: ICU change management Physician: Hospitalist Outpatient Specialists: [ ] Inpatient Consults: [facility] PROBLEM LIST: Severe sepsis, POA Acute metabolic encephalopathy, POA Acute kidney injury, POA Acute blood loss anemia, initial hemoglobin of 6.6, status post 1 unit PRBC Acute metabolic acidosis, POA Hyperkalemia, POA Hypertension, POA Hyperlipidemia, POA Electrolyte abnormality, POA DM type 2, POA Patient has history of lymphoma, current CT of the abdomen showed bulky retroperitoneal mesenteric gastrohepatic/nima hepatis and iliac emilia disease highly compatible with lymphoproliferative disorder with possible differential of lymphoma rather than metastatic adenopathy; Follows with Dr Forde Compression fracture of T12, seen on CT of the abdomen, POA Renal calculi, bilateral with perinephric fat stranding, POA PLAN: Admit per primary VS per unit protocol Complete bedrest for now Continue antibiotics Treat fever aggressively Monitor temperature curve Continue IV fluids Bilateral SCDs Follow up culture results Replete electrolyte accordingly Incentive spirometry Keep head of bed above 30 Aspiration precautions CBC, CMP, magnesium level daily HPI: 59-year-old male with past medical history of hypertension, DM type 2, lymphoma diagnosed in 2017 status post chemotherapy, CKD, hyperlipidemia, BPH who presented to ED with complaint of alteration in mental status generalized body weakness, and low sugar level and found to have acute on chronic kidney disease, severe metabolic acidosis, hyperkalemia, severe leukocytosis, and severe sepsis. Initial evaluation in ED showed T-max of 98.2 F, heart rate of 120, blood pressure 177/79. His initial lab is significant for WBC of more than [address], Hemoglobin of 6.6. His chemistry is significant for sodium level of 139, potassium 5.2, chloride of 109, bicarb 13, BUN of 127, creatinine 9.0, uric acid was noted to be elevated at 9.5 with phosphorus 8.1, LDH of 270. ICU consult for critical care evaluation and management. Patient was seen and examined ED with present at bedside. At present patient is currently getting1 unit of PRBC, hemodynamically stable, on room air with appropriate oxygen saturation, patient is able to answer questions appropriately. Denies any headache, chest pain, shortness of breath, abdominal pain, cough, difficulty urinating, or flu-like symptoms. PAST MEDICAL HX: see above PAST SURGICAL HX: noncontributory SOCIAL HISTORY: No tobacco, ETOH, or illicit drug use Coded Allergies: No Known Drug Allergies (Unverified Allergy, Unknown, 12/27/15) REVIEW OF SYSTEMS: 12 point ROS reviewed with patient. Pertinent positives mentioned above. Otherwise negative. PHYSICAL EXAM: GENERAL: alert, weak, awake oriented x 3 HEENT: EOMI, Sclera non icteric, moist mucosa NECK: Supple, no JVD, trachea midline LUNGS: Clear breath sounds bilaterally. No wheezes HEART: Regular rate and rhythm. Normal S1 and S2, without murmurs ABD: Abdomen soft, nontender. Bowel sounds present EXT: No clubbing cyanosis or edema NEURO: Alert and oriented to person, follows commands Vital Signs (last 8hr) Date Time Temp Pulse Resp B/P (MAP) Pulse Ox O2 Delivery O2 Flow Rate FiO2 05/02/25 19:51 98.4 110 20 190/92 98 Room Air* 0 21 05/02/25 18:18 97.5 109 29 172/86 100 Room Air* 0 05/02/25 15:02 98.6 120 18 140/83 98 Room Air* 0 21 05/02/25 14:41 98.6 118 18 123/79 98 Room Air* 0 05/02/25 13:27 98.6 125 18 142/95 99 Room Air* 0 21 LABS: Hematology Labs: Test 05/02/25 16:00 05/02/25 12:37 Range/Units White Blood Count 53.9 *H 4.8-10.8 K/uL Red Blood Count 2.11 L 4.50-6.20 MIL/uL Hemoglobin 6.6 *L 14.0-18.0 g/dL Hematocrit 21.0 *L 42-54 % Mean Corpuscular Volume 99.5 H 79-99 fL Mean Corpuscular Hemoglobin 31.3 27.0-33.0 pg Mean Corpuscular Hemoglobin Concent 31.4 L 32.0-36.0 g/dL Red Cell Distribution Width 15.7 H 11.0-15.5 % Platelet Count 290 130-400 K/uL Mean Platelet Volume 8.9 7.5-10.5 fL Immature Granulocyte % (Auto) 0.6 0-1 % Neutrophils (%) (Auto) 11.2 L 40.0-77.0 % Lymphocytes (%) (Auto) 82.4 H 21.0-51.0 % Monocytes (%) (Auto) 5.5 3.0-13.0 % Eosinophils (%) (Auto) 0.2 0.0-8.0 % Basophils (%) (Auto) 0.1 0.0-5.0 % Neutrophils # (Auto) 6.0 1.8-7.7 K/uL Lymphocytes # (Auto) 44.4 H 1.0-4.8 K/uL Monocytes # (Auto) 3.0 H 0.1-1.0 K/uL Eosinophils # (Auto) 0.11 0.00-0.70 K/uL Basophils # (Auto) 0.06 0.00-0.20 K/uL Absolute Immature Granulocyte (auto 0.30 0-1 K/uL Segmented Neutrophils % 12 L 40-70 % Band Neutrophils % 4 H 0-2 % Lymphocytes % (Manual) 83 H 22-44 % Eosinophils % (Manual) 1 1-6 % Nucleated Red Blood Cells 0.1 0.0-0.19 % Differential Comment MANUAL DIFFERENTIAL White Cell Morphology Comment SMUDGE CELLS 2+ Platelet Morphology Comment ADEQUATE Red Blood Cell Morphology See comments Erythrocyte Sedimentation Rate 2 0-20 MM/HR Reticulocyte Count (auto) 5.50960 H 0.42-2.23 % Immature Reticulocyte Fraction 23.20 H 0.18-0.48 % Monocytes % (Manual) 2 2-9 % Chemistry Labs: Test 05/02/25 17:42 05/02/25 15:36 05/02/25 12:37 Range/Units Whole Blood Glucose 74 70-110 MG/DL Bedside Glucose Comment Notified Nurse Sodium Level 139 136-145 mmol/L Potassium Level 5.2 H 3.5-5.1 mmol/L Chloride Level 109 101-111 mmol/L Carbon Dioxide Level 13 L 21-32 mmol/L Blood Urea Nitrogen 127 *H 7-18 mg/dL Creatinine 9.0 *H 0.5-1.3 mg/dL Glomerular Filtration Rate Calc 6 >90 mL/min Random Glucose 79 70-105 mg/dL Lactic Acid Level 1.0 0.8-2.5 mmol/L Uric Acid 9.5 H 2.6-7.2 mg/dL Total Calcium 8.2 L 8.5-10.1 mg/dL Phosphorus Level 8.1 H 2.5-4.9 mg/dL Total Bilirubin 0.3 0.2-1.0 mg/dL Direct Bilirubin 0.1 0.0-0.3 mg/dL Aspartate Amino Transf (AST/SGOT) 27 10-37 U/L Alanine Aminotransferase (ALT/SGPT) 24 12-78 U/L Alkaline Phosphatase 121 50-136 U/L Lactate Dehydrogenase 270 H 81-234 U/L Total Creatine Kinase 105 # 21-232 U/L Troponin I High Sensitivity 50 4-75 ng/L C-Reactive Protein, Quantitative 0.90 0.5-3.0 mg/L Total Protein 6.3 6.0-8.3 g/dL Albumin 3.5 3.5-5.0 g/dL Procalcitonin 0.19 0.05-0.5 ng/mL Coagulation Labs: Test 05/02/25 12:37 Range/Units Prothrombin Time 10.6 9.6-11.6 SEC Prothromb Time International Ratio 1.00 0.85-1.15 Activated Partial Thromboplast Time 24.9 L 26.3-35.5 SEC Fibrinogen 409 H 180-350 mg/dL D-Dimer Quantitative (PE/DVT) 857 *H 0-500 ng/mL DIAGNOSTICS / RADIOLOGY RESULTS: CR Chest, 1 View. IMPRESSION: No acute cardiopulmonary pathology is evident. ADDENDUM REPORT ADDENDUM: Results were shared by telephone at 05:58 PM EST on 05-02-2025 and acknowledged by KIANA Alas /[facility] EXAM: CT Abdomen and Pelvis without Intravenous Contrast CLINICAL HISTORY: Acute on chronic renal failure, severe leukocystosis, concern for sepsis. TECHNIQUE: Axial computed tomography images of the abdomen and pelvis without intravenous contrast. Dose reduction technique was used including one or more of the following: automated exposure control, adjustment of mA and kV according to patient size, and/or iterative reconstruction. IMPRESSION: 1. Bulky retroperitoneal, mesenteric, gastrohepatic/nima hepatis, and iliac emilia disease, highly compatible with lymphoproliferative disorder with possible differential of lymphoma (e.g., non-Hodgkin lymphoma) rather than metastatic adenopathy, given the size, homogeneity, and emilia distribution. Contrast enhanced CT chest abdomen pelvis and histopathology correlation is suggested. 2. Mild short segment circumferential thickening of the descending colon, likely indicative of focal colitis. 3. Compression fracture of T12. 4. Degenerative changes with vacuum phenomenon at L4-L5 and L5-S1. 5. Bilateral renal calculi with perinephric fat strandings. PLAN NEURO: Minimize central acting medications as possible. Fall Precautions. Well lighted room through the day and minimize interruptions through the night to prevent acute delirium. PULMONARY: Supplemental 02 as needed Titrate Fio2 to keep Spo2 > or = 90% DuoNebs and CPT as needed IS hourly while awake for pulmonary hygiene CARDIOVASCULAR: Follow hemodynamics. Titrate vasopressor to keep MAP >65 or systolic blood pressure >95mmHg DIPS: None LINES: PIV GI & NUTRITION: NPO Aspirations precautions Prokinetic agents and laxatives as needed KIDNEYS & ELECTROLYTES: Strict monitoring of intake and output Daily weights Avoid nephrotoxic agents Monitor electrolytes and replace as needed Goal urine output of 30mL/hr or 0.5mL/kg/hr Urine output: [ ] Fluid Balance: [ ] ENDOCRINE: Maintain blood glucose between 100-180 at all times. Insulin sliding scale for blood glucose management INFECTIOUS DISEASE: Trend temperature. Jc-culture if febrile. Micro: [ ] Antibiotics: [ ] HEMATOLOGY & COAGULATION: Monitor H&H. Keep Hgb > 7 Transfuse 1 unit of PRBC for Hgb < 7 Transfuse 1 pack of platelets of platelets < 20, 000 Watch for any signs and symptoms of bleeding SKIN: Pressure ulcer prevention per facility protocol Rehab: PT/OT Prophylaxis: GI: PPI DVT: SCDs Code Status: Full Resuscitation Disposition: ICU Other: Total patient care time exceeds 38 minutes excluding all procedures. Supervising physician: PINEDA Mckay AGACN May 02, 2025 21:18
[2025-05-02] MEDS: MEROPENEM 1GM 1 GM VIAL IVPB SCH (21:36)
[2025-05-02] MEDS ORDERED: AMLO2.5T4 PO ×2 (21:51)
[2025-05-02 23:49] LABS: GLOMERULAR FILTR. RATE CALC 6.0 mL/min (>90); GLUCOSE,RANDOM 196.0 mg/dL (70-105); SODIUM SERUM 140.0 mmol/L (136-145)
[2025-05-03] VITALS (50 sets, daily range): BP systolic 139–186; BP diastolic 66–91; PULSE 81–109; RESP 15–23; TEMP 98.7–100.1; O2SAT 97–98
[2025-05-03 00:06] LABS: CREATININE 8.7 mg/dL (0.5-1.3); UREA NITROGEN, BLOOD 122.0 mg/dL (7-18)
[2025-05-03] MEDS: OXYmetazoline HCL SPRAY 100 SPRAYS/15 ML BOTTLE EN PRN (01:14)
[2025-05-03 04:48] LABS: IMMATURE GRANULOCYTE ABSOLUTE 0.25 K/uL (0-1); NUCLEATED RED BLOOD CELLS 0.1 % (0.0-0.19); PLATELET COUNT (AUTO) 275 K/uL (130-400); RED BLOOD CELL COUNT(AUTO) 2.60 MIL/uL (4.50-6.20); RED CELL DISTRIBUTION WIDTH 15.2 % (11.0-15.5)
[2025-05-03 05:01] LABS: WHITE BLOOD COUNT (AUTO) 52.1 K/uL (4.8-10.8)
[2025-05-03 05:11] LABS: ASPARTATE AMINOTRANSFERASE 23.0 U/L (10-37); GLOMERULAR FILTR. RATE CALC 7.0 mL/min (>90); GLUCOSE,RANDOM 123.0 mg/dL (70-105); SODIUM SERUM 140.0 mmol/L (136-145); TOTAL PROTEIN, SERUM 5.4 g/dL (6.0-8.3)
[2025-05-03 05:35] LABS: CREATININE 8.5 mg/dL (0.5-1.3); UREA NITROGEN, BLOOD 118.0 mg/dL (7-18)
[2025-05-03] MEDS ORDERED: OXYmetazoline HCL SPRAY 100 SPRAYS/15 ML BOTTLE EN PRN (06:30)
[2025-05-03] MEDS: Vitamin B Complex/Vit C/Folic Acid PO SCH (08:37)
[2025-05-03] MEDS: LINEZOLID 600 MG/ISO-OSM 300 ML IV SCH (08:37)
--- NOTE | 2025-05-03 09:19 | PN ---
[facility] PROGRESS NOTE Date Patient Seen: May 03, 2025 Time of Visit: 09:19 Supervising Physician: Dr. Otoniel Titus Consulting Physician: Hospitalist Outpatient Specialists: [ ] Inpatient Consults: [facility] PROBLEM LIST: Severe sepsis, POA Acute metabolic encephalopathy, POA Acute kidney injury, POA Acute blood loss anemia, initial hemoglobin of 6.6, status post 1 unit PRBC Acute metabolic acidosis, POA Hyperkalemia, POA Hypertension, POA Hyperlipidemia, POA Electrolyte abnormality, POA DM type 2, POA Patient has history of lymphoma, current CT of the abdomen showed bulky retroperitoneal mesenteric gastrohepatic/nima hepatis and iliac emilia disease highly compatible with lymphoproliferative disorder with possible differential of lymphoma rather than metastatic adenopathy; Follows with Dr Forde Compression fracture of T12, seen on CT of the abdomen, POA Renal calculi, bilateral with perinephric fat stranding, POA PLAN: Admit per primary VS per unit protocol Complete bedrest for now Continue antibiotics Treat fever aggressively Monitor temperature curve Continue IV fluids Bilateral SCDs Follow up culture results Replete electrolyte accordingly Incentive spirometry Keep head of bed above 30 Aspiration precautions CBC, CMP, magnesium level daily INTERVAL HISTORY: Patient evaluated bedside, currently on room air. With a pressure in the 150 systolic with a heart rate of 100. White [place] elevated [place] [address] to [address] overnight. Hemoglobin is low but remained stable at 8.4. Creatinine down from 9.0-8.5 overnight. Output approximately 346 mL over the last [address] abdomen shows signs consistent with non-Hodgkin's lymphoma and most likely for metastatic disease. Hematology nephrology has been consulted. Patient remains on linezolid and meropenem for severe leukocytosis, possible colitis. Plan Continue antibiotics Pending Hematology recommendations Follow nephrology recommendations Continue to monitor Is&Os Continue bicarb drip Given CT report per Radiology, patient's prognosis remains guarded. REVIEW OF SYSTEMS: 12 point ROS reviewed with patient. Pertinent positives mentioned above. Otherwise negative. PHYSICAL EXAM: GENERAL: alert, weak, awake oriented x 3 HEENT: EOMI, Sclera non icteric, moist mucosa NECK: Supple, no JVD, trachea midline LUNGS: Clear breath sounds bilaterally. No wheezes HEART: Regular rate and rhythm. Normal S1 and S2, without murmurs ABD: Abdomen soft, nontender. Bowel sounds present EXT: No clubbing cyanosis or edema NEURO: Alert and oriented to person, follows commands Vital Signs (last 8hr) Date Time Temp Pulse Resp B/P (MAP) Pulse Ox O2 Delivery O2 Flow Rate FiO2 05/03/25 06:30 97 19 158/76 97 05/03/25 06:00 99 19 163/74 98 05/03/25 05:30 91 18 139/67 97 05/03/25 05:00 103 20 153/69 96 05/03/25 04:37 97 171/78 05/03/25 04:30 102 17 165/75 97 05/03/25 04:00 97 Room Air* 0 21 05/03/25 04:00 99.0 91 19 171/78 97 05/03/25 03:00 102 18 165/78 98 05/03/25 02:45 85 18 155/77 98 05/03/25 02:30 89 20 144/71 98 05/03/25 02:15 81 17 141/70 97 05/03/25 02:00 86 16 142/68 98 05/03/25 01:45 84 15 147/71 97 05/03/25 01:30 96 17 150/72 96 LABS: Hematology Labs: Test 05/03/25 04:19 05/02/25 16:00 05/02/25 12:37 Range/Units White Blood Count 52.1 *H 4.8-10.8 K/uL Red Blood Count 2.60 #L 4.50-6.20 MIL/uL Hemoglobin 8.4 L 14.0-18.0 g/dL Hematocrit 25.4 L 42-54 % Mean Corpuscular Volume 97.7 79-99 fL Mean Corpuscular Hemoglobin 32.3 27.0-33.0 pg Mean Corpuscular Hemoglobin Concent 33.1 32.0-36.0 g/dL Red Cell Distribution Width 15.2 11.0-15.5 % Platelet Count 275 130-400 K/uL Mean Platelet Volume 9.4 7.5-10.5 fL Immature Granulocyte % (Auto) 0.5 0-1 % Neutrophils (%) (Auto) 9.9 L 40.0-77.0 % Lymphocytes (%) (Auto) 82.6 H 21.0-51.0 % Monocytes (%) (Auto) 6.3 3.0-13.0 % Eosinophils (%) (Auto) 0.6 0.0-8.0 % Basophils (%) (Auto) 0.1 0.0-5.0 % Neutrophils # (Auto) 5.2 1.8-7.7 K/uL Lymphocytes # (Auto) 43.0 H 1.0-4.8 K/uL Monocytes # (Auto) 3.3 H 0.1-1.0 K/uL Eosinophils # (Auto) 0.31 0.00-0.70 K/uL Basophils # (Auto) 0.04 0.00-0.20 K/uL Absolute Immature Granulocyte (auto 0.25 0-1 K/uL Nucleated Red Blood Cells 0.1 0.0-0.19 % Segmented Neutrophils % 12 L 40-70 % Band Neutrophils % 4 H 0-2 % Lymphocytes % (Manual) 83 H 22-44 % Eosinophils % (Manual) 1 1-6 % Differential Comment MANUAL DIFFERENTIAL White Cell Morphology Comment SMUDGE CELLS 2+ Platelet Morphology Comment ADEQUATE Red Blood Cell Morphology See comments Erythrocyte Sedimentation Rate 2 0-20 MM/HR Reticulocyte Count (auto) 5.23658 H 0.42-2.23 % Immature Reticulocyte Fraction 23.20 H 0.18-0.48 % Monocytes % (Manual) 2 2-9 % Chemistry Labs: Test 05/03/25 04:19 05/03/25 04:18 05/02/25 21:54 05/02/25 12:37 Range/Units Sodium Level 140 136-145 mmol/L Potassium Level 3.7 3.5-5.1 mmol/L Chloride Level 109 101-111 mmol/L Carbon Dioxide Level 13 L 21-32 mmol/L Blood Urea Nitrogen 118 *H 7-18 mg/dL Creatinine 8.5 *H 0.5-1.3 mg/dL Glomerular Filtration Rate Calc 7 >90 mL/min Random Glucose 123 H 70-105 mg/dL Hemoglobin A1c 5.4 4.0-6.0 % Estimated Average Glucose (eAG) 108 70-126 mg/dL Total Calcium 7.8 L 8.5-10.1 mg/dL Magnesium Level 1.80 1.80-2.40 mg/dL Total Bilirubin 0.4 # 0.2-1.0 mg/dL Aspartate Amino Transf (AST/SGOT) 23 10-37 U/L Alanine Aminotransferase (ALT/SGPT) 20 12-78 U/L Alkaline Phosphatase 96 50-136 U/L Total Protein 5.4 L 6.0-8.3 g/dL Albumin 2.9 L 3.5-5.0 g/dL Whole Blood Glucose 118 H 70-110 MG/DL Bedside Glucose Comment Notified Nurse Lactic Acid Level 1.0 0.8-2.5 mmol/L Uric Acid 9.5 H 2.6-7.2 mg/dL Phosphorus Level 8.1 H 2.5-4.9 mg/dL Direct Bilirubin 0.1 0.0-0.3 mg/dL Lactate Dehydrogenase 270 H 81-234 U/L Total Creatine Kinase 105 # 21-232 U/L Troponin I High Sensitivity 50 4-75 ng/L C-Reactive Protein, Quantitative 0.90 0.5-3.0 mg/L Procalcitonin 0.19 0.05-0.5 ng/mL Coagulation Labs: Test 05/02/25 12:37 Range/Units Prothrombin Time 10.6 9.6-11.6 SEC Prothromb Time International Ratio 1.00 0.85-1.15 Activated Partial Thromboplast Time 24.9 L 26.3-35.5 SEC Fibrinogen 409 H 180-350 mg/dL D-Dimer Quantitative (PE/DVT) 857 *H 0-500 ng/mL DIAGNOSTICS / RADIOLOGY RESULTS: [ ] PLAN NEURO: Minimize central acting medications as possible. Fall Precautions. Well lighted room through the day and minimize interruptions through the night to prevent acute delirium. PULMONARY: Supplemental 02 as needed Titrate Fio2 to keep Spo2 > or = 90% DuoNebs and CPT as needed IS hourly while awake for pulmonary hygiene CARDIOVASCULAR: Follow hemodynamics. Titrate vasopressor to keep MAP >65 or systolic blood pressure >95mmHg DIPS: None LINES: PIV GI & NUTRITION: NPO Aspirations precautions Prokinetic agents and laxatives as needed KIDNEYS & ELECTROLYTES: Strict monitoring of intake and output Daily weights Avoid nephrotoxic agents Monitor electrolytes and replace as needed Goal urine output of 30mL/hr or 0.5mL/kg/hr Urine output: [ ] Fluid Balance: [ ] ENDOCRINE: Maintain blood glucose between 100-180 at all times. Insulin sliding scale for blood glucose management INFECTIOUS DISEASE: Trend temperature. Jc-culture if febrile. Micro: [ ] Antibiotics: [ ] HEMATOLOGY & COAGULATION: Monitor H&H. Keep Hgb > 7 Transfuse 1 unit of PRBC for Hgb < 7 Transfuse 1 pack of platelets of platelets < 20, 000 Watch for any signs and symptoms of bleeding SKIN: Pressure ulcer prevention per facility protocol Rehab: PT/OT Prophylaxis: GI: PPI DVT: SCDs Code Status: Full Resuscitation Disposition: ICU Other: Total patient care time exceeds 38 minutes excluding all procedures. SISI NELSON PAC May 03, 2025 09:19
--- NOTE | 2025-05-03 09:22 | NUR ---
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 Pt lives at home with his wif Vanessa Esquivel [phone], reports he is independent of his self care, uses walker with seat and cane as needed. No HH, provider or HD. PCP is [facility] and uses [facility] for rx. Pt denies dc needs and will return home at dc
[2025-05-03] MEDS: amLODIPine 5 MG TAB PO ONE (13:42)
--- NOTE | 2025-05-03 18:24 | CONS ---
CONSULT NOTE: On presentation to the hospital, patient was noted to be afebrile with T-max of 98.2 F, heart rate of 120, blood pressure 177/79. Labs on presentation [place] [address] which [place] [address] with significant lymphocytosis close to 82%. Hemoglobin was noted to be at 6.6 on repeat labs and platelet count of 429642. Coagulation panel was noted to be normal. BMP on presentation significant for sodium 139, potassium 5.2, chloride of 109, bicarb 13, BUN of 127, creatinine 9.0, uric acid was noted to be elevated at 9.5 with phosphorus 8.1, LDH of 270. Patient will be admitted for further management of acute on chronic renal failure with significant leukocytosis, progressive anemia. and underlying metabolic acidosis. Received blood transfusion. It seems the patient want second opinion different from [place] [facility] REVIEW OF SYSTEMS CONSTITUTIONAL: Malaise, chills and low sugars NEUROLOGICAL: Denies headache, amaurosis fugax, motor weakness, sensory deficit, vertigo/spinning sensation, gait abnormalities, or tremors. ENT: No hearing loss, otalgia, otorrhea, rhinitis, rhinorrhea, hoarseness, or sore throat. CARDIOVASCULAR: Denies any exertional angina, dyspnea on exertion, orthopnea, paroxysmal nocturnal dyspnea, palpitations, life-threatening arrhythmias, claudication. PULMONARY: Denies any shortness of breath, cough, phlegm/sputum, hemoptysis, pleuritic chest pain. SLEEP: Denies morning headaches, daytime somnolence or napping. Denies difficulty falling asleep, staying asleep, waking from sleep. Denies knowledge of snoring. GASTROINTESTINAL: Denies any type of dysphagia to either liquids or solids. Denies nausea, vomiting, pyrosis, early satiety, abdominal pain, diarrhea, constipation, or changes in stool consistency or caliber. Denies coffee-ground emesis, hematemesis, hematochezia, or melanotic stools. GENITOURINARY: Denies frequency, urgency, nocturia, hematuria or incontinence (Storage/Irritative symptoms.) Low urinary stream, straining to void, urinary intermittency or hesitancy, splitting of the voiding stream, terminal dribbling. ENDOCRINOLOGIC: Denies polyuria, polydipsia, polyphagia or heat/cold intolerances. HEMATOLOGIC: reports having hx of leukemia ONCOLOGIC: Denies personal history of malignancy. DERMATOLOGIC: Denies rashes or pruritus. PSYCHIATRIC: Denies any suicidal or homicidal ideation. Denies hallucinations. PAST MEDICAL HISTORY: Hypertension, hyperlipidemia, history of stroke in 2016, history of CLL diagnosed in 2017 status post chemotherapy in [place], type 2 diabetes mellitus PAST SURGICAL HISTORY: Patient denies history of previous major surgeries PAST SOCIAL HISTORY: Denies history of active smoking or alcohol consumption FAMILY HISTORY: Denies pertinent family history Allergies: No known drug allergies Home medications: Atorvastatin 40 mg daily, Plavix 75 mg daily, glipizide 5 mg twice daily, Flomax 0.4 mg daily, torsemide 20 mg daily Coded Allergies: No Known Drug Allergies (Unverified Allergy, Unknown, 12/27/15) PHYSICAL EXAM GENERAL APPEARANCE: The patient is awake, alert, and oriented, appears anxious NEUROLOGICAL: Cranial nerves II-XII grossly intact. Motor is 5/5 in bilateral upper and lower extremities proximal to distal. No sensory deficits. HEENT: Face is symmetric. Pupils are equal and reactive. Extraocular movements are intact. NECK: Supple. No JVD. No thyromegaly. No submental, submandibular, pre- /postauricular, occipital or supraclavicular lymphadenopathy. CHEST: Normal chest expansion. No Telemetry. LUNGS: Absence of any rales, rhonchi or any wheezing. CARDIOVASCULAR: Regular. S1 and S2 normal. No appreciable rubs, murmurs or gallops. ABDOMEN: Soft, nontender, and nondistended. There is no rebound, voluntary guarding, or rigidity. : Deferred. No Doss. EXTREMITIES: Non-edematous and not cyanotic. No clubbing. Good capillary refill. SKIN: No skin breakdown. Assessment 1. History of chronic lymphocytic leukemia with patient on observation 2. Severe anemia status post blood transfusion 3. Chronic renal insufficiency with the patient is not dialysis yet. Plan 1. Patient and family they want different opinion from [place] [facility]. I will sign off this case at this time NAVARRO HUDSON MD May 03, 2025 18:24
--- NOTE | 2025-05-03 19:02 | PN ---
[facility] PROGRESS NOTE Date of Service: May 03, 2025 Time of Service: 19:02 SUBJECTIVE: [ ] This is a 59-year-old male with underlying history of chronic kidney disease, previous history of CLL in 2017 status post chemotherapy in [place], [place], hist ory of stroke in 2016 on chronic outpatient treatment with Plavix, type 2 diabetes mellitus, BPH, hyperlipidemia, who presented to the ER for further evaluation of generalized malaise and low blood sugar. Patient states that he was feeling weak today and EMS was called who noticed that his blood sugar was in the 40s. Patient was brought to the ER for further evaluation of severe hypoglycemia. Patient feels that he has been having malaise and not feeling well today. He takes glipizide 5 mg b.i.d. for management of type 2 diabetes mellitus. He gets about 1-2 episodes of hypoglycemia in a month. REVIEW OF SYSTEMS CONSTITUTIONAL: Malaise, chills and low sugars NEUROLOGICAL: Denies headache, amaurosis fugax, motor weakness, sensory deficit, vertigo/spinning sensation, gait abnormalities, or tremors. ENT: No hearing loss, otalgia, otorrhea, rhinitis, rhinorrhea, hoarseness, or sore throat. CARDIOVASCULAR: Denies any exertional angina, dyspnea on exertion, orthopnea, paroxysmal nocturnal dyspnea, palpitations, life-threatening arrhythmias, cl audication. PULMONARY: Denies any shortness of breath, cough, phlegm/sputum, hemoptysis, pleuritic chest pain. SLEEP: Denies morning headaches, daytime somnolence or napping. Denies difficulty falling asleep, staying asleep, waking from sleep. Denies knowledge of snoring. GASTROINTESTINAL: Denies any type of dysphagia to either liquids or solids. Denies nausea, vomiting, pyrosis, early satiety, abdominal pain, diarrhea, const ipation, or changes in stool consistency or caliber. Denies coffee-ground emesis, hematemesis, hematochezia, or melanotic stools. GENITOURINARY: Denies frequency, urgency, nocturia, hematuria or incontinence (Storage/Irritative symptoms.) Low urinary stream, straining to void, urinary intermittency or hesitancy, splitting of the voiding stream, terminal dribbling. ENDOCRINOLOGIC: Denies polyuria, polydipsia, polyphagia or heat/cold intolerances. HEMATOLOGIC: reports having hx of leukemia ONCOLOGIC: Denies personal history of malignancy. DERMATOLOGIC: Denies rashes or pruritus. PSYCHIATRIC: Denies any suicidal or homicidal ideation. Denies hallucinations. PHYSICAL EXAM GENERAL APPEARANCE: The patient is awake, alert, and oriented, appears anxious NEUROLOGICAL: Cranial nerves II-XII grossly intact. Motor is 5/5 in bilateral upper and lower extremities proximal to distal. No sensory deficits. HEENT: Face is symmetric. Pupils are equal and reactive. Extraocular movements are intact. NECK: Supple. No JVD. No thyromegaly. No submental, submandibular, pre- /postauricular, occipital or supraclavicular lymphadenopathy. CHEST: Normal chest expansion. No Telemetry. LUNGS: Absence of any rales, rhonchi or any wheezing. CARDIOVASCULAR: Regular. S1 and S2 normal. No appreciable rubs, murmurs or gallops. ABDOMEN: Soft, nontender, and nondistended. There is no rebound, voluntary guarding, or rigidity. : Deferred. No Doss. EXTREMITIES: Non-edematous and not cyanotic. No clubbing. Good capillary refill. SKIN: No skin breakdown. Vital Signs (last 8hr) Date Time Temp Pulse Resp B/P (MAP) Pulse Ox O2 Delivery O2 Flow Rate FiO2 05/03/25 16:37 99.7 94 20 175/83 97 Room Air 05/03/25 16:22 94 179/81 05/03/25 16:07 91 22 176/83 97 Room Air 05/03/25 16:00 97 Room Air* 0 05/03/25 15:37 92 19 179/81 97 Room Air 05/03/25 15:07 98 21 186/86 98 Room Air 05/03/25 14:37 93 16 171/84 97 Room Air 05/03/25 14:07 101 18 166/82 98 Room Air 05/03/25 13:37 101 19 185/86 97 Room Air 05/03/25 13:07 102 17 185/81 98 Room Air 05/03/25 12:37 100 22 179/66 97 Room Air 05/03/25 12:07 103 19 179/85 97 Room Air 05/03/25 12:00 97 Room Air* 0 05/03/25 11:37 106 19 184/85 98 Room Air 05/03/25 11:07 99.3 99 21 176/88 98 Room Air LABS: Laboratory: Test 05/03/25 04:19 05/03/25 04:18 05/02/25 21:54 05/02/25 16:00 Range/Units White Blood Count 52.1 *H 4.8-10.8 K/uL Red Blood Count 2.60 #L 4.50-6.20 MIL/uL Hemoglobin 8.4 L 14.0-18.0 g/dL Hematocrit 25.4 L 42-54 % Mean Corpuscular Volume 97.7 79-99 fL Mean Corpuscular Hemoglobin 32.3 27.0-33.0 pg Mean Corpuscular Hemoglobin Concent 33.1 32.0-36.0 g/dL Red Cell Distribution Width 15.2 11.0-15.5 % Platelet Count 275 130-400 K/uL Mean Platelet Volume 9.4 7.5-10.5 fL Immature Granulocyte % (Auto) 0.5 0-1 % Neutrophils (%) (Auto) 9.9 L 40.0-77.0 % Lymphocytes (%) (Auto) 82.6 H 21.0-51.0 % Monocytes (%) (Auto) 6.3 3.0-13.0 % Eosinophils (%) (Auto) 0.6 0.0-8.0 % Basophils (%) (Auto) 0.1 0.0-5.0 % Neutrophils # (Auto) 5.2 1.8-7.7 K/uL Lymphocytes # (Auto) 43.0 H 1.0-4.8 K/uL Monocytes # (Auto) 3.3 H 0.1-1.0 K/uL Eosinophils # (Auto) 0.31 0.00-0.70 K/uL Basophils # (Auto) 0.04 0.00-0.20 K/uL Absolute Immature Granulocyte (auto 0.25 0-1 K/uL Nucleated Red Blood Cells 0.1 0.0-0.19 % Sodium Level 140 136-145 mmol/L Potassium Level 3.7 3.5-5.1 mmol/L Chloride Level 109 101-111 mmol/L Carbon Dioxide Level 13 L 21-32 mmol/L Blood Urea Nitrogen 118 *H 7-18 mg/dL Creatinine 8.5 *H 0.5-1.3 mg/dL Glomerular Filtration Rate Calc 7 >90 mL/min Random Glucose 123 H 70-105 mg/dL Hemoglobin A1c 5.4 4.0-6.0 % Estimated Average Glucose (eAG) 108 70-126 mg/dL Total Calcium 7.8 L 8.5-10.1 mg/dL Magnesium Level 1.80 1.80-2.40 mg/dL Total Bilirubin 0.4 # 0.2-1.0 mg/dL Aspartate Amino Transf (AST/SGOT) 23 10-37 U/L Alanine Aminotransferase (ALT/SGPT) 20 12-78 U/L Alkaline Phosphatase 96 50-136 U/L Total Protein 5.4 L 6.0-8.3 g/dL Albumin 2.9 L 3.5-5.0 g/dL Whole Blood Glucose 118 H 70-110 MG/DL Bedside Glucose Comment Notified Nurse Segmented Neutrophils % 12 L 40-70 % Band Neutrophils % 4 H 0-2 % Lymphocytes % (Manual) 83 H 22-44 % Eosinophils % (Manual) 1 1-6 % Differential Comment MANUAL DIFFERENTIAL White Cell Morphology Comment SMUDGE CELLS 2+ Platelet Morphology Comment ADEQUATE Red Blood Cell Morphology See comments Erythrocyte Sedimentation Rate 2 0-20 MM/HR Reticulocyte Count (auto) 5.52384 H 0.42-2.23 % Immature Reticulocyte Fraction 23.20 H 0.18-0.48 % Test 05/02/25 14:42 05/02/25 13:20 05/02/25 12:37 Range/Units Blood Gas Specimen Type Venous Arterial Blood Oxygen Saturation 91.3 L 94.0-98.0 % Venous Blood pH 7.275 L 7.320-7.430 Venous Blood pCO2 at Patient Temp 22 L 38-54 Venous Blood pO2 at Patient Temp 65.5 H 23.0-48.0 mmHg Venous Blood HCO3 10.1 L 22.0-29.0 Venous Blood Base Excess -15.2 L -2.0-3.0 Venous Blood Total Hemoglobin 7.5 L 13.5-17.5 Sodium (Blood Gas) 139 136-145 MMOL/L Bedside Potassium (Blood Gas) 5.2 H 3.4-4.5 MMOL/L Bedside Chloride (Blood Gas) 118 H 98-107 MMOL/L Bedside Glucose (Blood Gas) 38 *L 65-95 MG/DL Bedside Ionized Calcium (Blood Gas) 1.12 L 1.15-1.33 MMOL/L Bedside Lactic Acid (Blood Gas) 0.90 H 0.36-0.75 MMOL/L Blood Gas Temperature 37.0 35.5-37.0 CELSIUS Blood Gas Vent Mode VBG ROOM AIR FiO2 21.0 % Blood Gas Specimen Comment VBGJULIE Urine Color COLORLESS YELLOW Urine Appearance CLOUDY H CLEAR Urine pH 5.5 5.0-8.0 Urine Specific [place] 1.010 1.001-1.031 Urine Protein 70 H NEGATIVE mg/dL Urine Glucose (UA) NEGATIVE NEGATIVE mg/dL Urine Ketones NEGATIVE NEGATIVE mg/dL Urine Occult Blood +- (TRACE) H NEGATIVE Urine Nitrate NEGATIVE NEGATIVE Urine Bilirubin NEGATIVE NEGATIVE mg/dL Urine Urobilinogen 0.2 0.2-1.0 mg/dL Urine Leukocyte Esterase NEGATIVE NEGATIVE Rogelio/uL Urine RBC 2-5 H 0-1 /HPF Urine WBC 2-5 H 0-1 /HPF Urine Bacteria None None Seen /HPF Urine Random Creatinine 72.92 30-135 mg/dL Urine Random Sodium 45 40-220 mmol/l Urine Opiates Screen NEGATIVE NEGATIVE Urine Barbiturates Screen NEGATIVE NEGATIVE Urine Phencyclidine Screen NEGATIVE NEGATIVE Urine Amphetamines Screen NEGATIVE NEGATIVE Urine Benzodiazepines Screen NEGATIVE NEGATIVE Urine Cocaine Screen NEGATIVE NEGATIVE Urine Marijuana (THC) Screen NEGATIVE NEGATIVE Monocytes % (Manual) 2 2-9 % Prothrombin Time 10.6 9.6-11.6 SEC Prothromb Time International Ratio 1.00 0.85-1.15 Activated Partial Thromboplast Time 24.9 L 26.3-35.5 SEC Fibrinogen 409 H 180-350 mg/dL D-Dimer Quantitative (PE/DVT) 857 *H 0-500 ng/mL Lactic Acid Level 1.0 0.8-2.5 mmol/L Uric Acid 9.5 H 2.6-7.2 mg/dL Phosphorus Level 8.1 H 2.5-4.9 mg/dL Direct Bilirubin 0.1 0.0-0.3 mg/dL Lactate Dehydrogenase 270 H 81-234 U/L Total Creatine Kinase 105 # 21-232 U/L Troponin I High Sensitivity 50 4-75 ng/L C-Reactive Protein, Quantitative 0.90 0.5-3.0 mg/L Procalcitonin 0.19 0.05-0.5 ng/mL Current Medications Medications (Trade) Dose Ordered Sig/Álvaro Route PRN Reason Start Time Stop Time Status Last Admin Dose Admin Acetaminophen (TYLenol 325MG TAB) 650 mg Q6H PRN PO MILD PAIN (1-3) 05/02/25 15:00 06/01/25 14:59 Allopurinol (ZYLOprim 100MG) 200 mg DAILY PO 05/03/25 09:00 06/02/25 08:59 05/03/25 09:39 200 MG Amlodipine Besylate (NorvASC 5MG TAB) 5 mg Q24H PO 05/02/25 19:00 05/03/25 13:38 DC 05/02/25 20:43 5 MG Amlodipine Besylate (NorvASC 5MG TAB) 10 mg Q24H PO 05/03/25 19:00 06/02/25 18:59 Atorvastatin Calcium (LIPItor 40MG) 40 mg DAILY PO 05/03/25 09:00 06/02/25 08:59 05/03/25 08:37 40 MG Dextrose (D50w) 50 ml AD PRN IV HYPOGLYCEMIA PROTOCOL 05/02/25 14:30 06/01/25 14:29 05/02/25 21:59 50 ML Glucagon (Glucagon 1mg Kit) 1 mg AD PRN IM HYPOGLYCEMIA PROTOCOL 05/02/25 14:30 06/01/25 14:29 Hydralazine HCl (APRESOLine 20MG INJ) 10 mg Q6H PRN IV ADMINISTER FOR SBP > 160 05/02/25 15:00 06/01/25 14:59 05/03/25 04:37 10 MG Hydralazine HCl ([id number] TAB) 50 mg Q6H PO 05/03/25 09:30 06/02/25 09:29 05/03/25 16:22 50 MG Linezolid 300 ml @ 300 mls/hr Q12H IV 05/02/25 15:30 05/02/25 16:07 DC Linezolid 300 ml @ 300 mls/hr Q12H IV 05/02/25 19:00 05/03/25 06:10 DC 05/02/25 20:43 300 MLS/HR Linezolid 300 ml @ 300 mls/hr Q12H IV 05/03/25 09:00 05/13/25 08:59 05/03/25 08:37 300 MLS/HR Lorazepam (AtiVAN) 0.5 mg Q6H PRN PO ANXIETY/AGITATION 05/02/25 21:00 06/01/25 20:59 05/02/25 21:31 0.5 MG Meropenem (Merrem 1gm) 1 gm Q24H IVPB 05/02/25 18:00 05/12/25 17:59 05/03/25 17:31 1 GM Ondansetron HCl (zoFRAN 4MG INJ) 4 mg Q6H PRN IVP NAUSEA/VOMITING 05/02/25 15:00 06/01/25 14:59 Oxymetazoline HCl (AFrin) 1 SPRAY BID PRN EN NASAL CONGESTION 05/03/25 06:30 06/02/25 00:29 Oxymetazoline HCl (AFrin) 1 sprays BID PRN EN NASAL CONGESTION 05/03/25 00:30 05/03/25 06:13 DC 05/03/25 01:14 1 SPRAYS Pantoprazole Sodium (PROTonix 40MG INJ) 40 mg Q24H IVP 05/02/25 15:00 06/01/25 14:59 05/03/25 14:28 40 MG Pharmacy Profile Note (Pharmacy Communication) 1 each ONCE MISC 05/02/25 15:00 05/02/25 15:29 DC Phenazopyridine HCl (PYRIdium HCL 200 MG TAB) 200 mg Q8H PRN PO bladder spasms 05/02/25 19:00 06/01/25 18:59 Piperacillin Sod/ Tazobactam Sod (Zosyn 3.375gm+NS 50ml) 3.375 gm ONCE STAT IV 05/02/25 13:35 05/02/25 13:41 DC 05/02/25 14:56 3.375 GM Sevelamer HCl (RENAgel 800 MG TAB) 1,600 mg TIDMEALS PO 05/03/25 12:00 06/02/25 11:59 05/03/25 16:22 1,600 MG Sodium Bicarbonate 150 meq/Dextrose 1,150 ml @ 125 mls/hr Q9H12M IVP 05/02/25 15:00 06/01/25 14:59 05/03/25 11:15 125 MLS/HR Tamsulosin HCl (FloMAX) 0.4 mg Q24H PO 05/02/25 16:30 06/01/25 16:29 05/03/25 16:22 0.4 MG Thiamine HCl (Vitamin B-1) 100 mg Q24H IVP 05/02/25 14:30 06/01/25 14:29 05/03/25 14:28 100 MG Vitamin B Complex/ Vit C/Folic Acid (Nephrovite Tablet) 1 cap DAILY PO 05/03/25 09:00 06/02/25 08:59 05/03/25 08:37 1 CAP DIAGNOSTICS / RADIOLOGY: [ ] ASSESSMENT: Severe leukocytosis with lymphocytosis with history of chronic lymphocytic leukemia, POA Bulky intra-abdominal and retroperitoneal lymphadenopathy, POA Severe acute kidney injury with history of chronic kidney disease, POA Rule out tumor lysis syndrome, POA Acute on chronic anemia, POA Rule out occult sepsis, POA Severe hypoglycemia secondary to sulfonylurea use as outpatient, POA History of chronic kidney disease, POA History of type 2 diabetes mellitus, POA History of previous stroke maintained on chronic outpatient treatment with Plavix, POA Hypertension, POA Hyperlipidemia, POA PLAN: Patient will be admitted to ICU Consultation with Hematology will be requested urgently, patient's case was discussed with Dr. Maya on phone who is covering for Dr. Forde , plan is for patient to receive 1 unit of leuko reduced PRBC transfusion, Hematology will follow up in the morning, concern is for reoccurrence of chronic lymphocytic leukemia, patient with significant intra-abdominal lymphadenopathy as well, uric acid is significantly high, we will need to rule out tumor lysis syndrome, there was no hemolysis noted with Aleida test noted to be negative We will transfuse to maintain hemoglobin greater than seven Monitor closely for signs of active bleeding We will hold Plavix We will start patient on sodium bicarb drip at 75 mL/hours Doss catheter will be placed Avoid any nephrotoxic medication, avoid NSAIDs and IV contrast We will start patient on broad-spectrum antibiotics with linezolid and Merrem, antibiotics can be stopped a deescalated in 48-72 hours based on culture report, blood cultures will be obtained Abdominal CT shows findings of significant intra-abdominal and retroperitoneal lymphadenopathy, this could be secondary to reoccurrence of CLL, we will need to rule out high grade lymphoma especially Haines's transformation, as well We will request origin consultation with Nephrology, patient's case was discussed with Dr. Patel already Patient's case was discussed with ICU service, H&H and BMP will be trended closely Patient will receive a dose of Lokelma for management of hyperkalemia All labs will be repeated in the morning, we will see how patient progresses in the next 48-72 hours, we will follow up on further input of the consultants in the case Blood glucose will be monitored closely, glipizide to be stopped as outpatient due to underlying renal failure and concerns for sulfonylurea toxicity with advanced renal failure We will keep patient on GI prophylaxis with Protonix, DVT prophylaxis with SCDs Date of service: 05/02/2025 Condition remains critical, critical care minutes: 45 minutes Plan of care was discussed with patient and at bedside, Filiberto Mei MD Advanced Care Planning: Which of the following were discussed: Hospice care: Yes __ No _x_ Therapeutic options: Yes _x_ No __ Advance directives: Yes _x_ No __ Other discussions: Discussed with who?: Patient Voluntary nature of this service was explained to the patient? Yes _x_ No __ Amount of time spent: 20 minutes ERYN DELGADO MD May 03, 2025 19:02
[2025-05-03] MEDS: amLODIPine 5 MG TAB PO SCH (20:22)
--- NOTE | 2025-05-03 21:37 | CONS ---
REFERRING PHYSICIAN: Dr. Mei . I did discuss with the primary team. REASON FOR CONSULTATION: Renal failure. HISTORY OF PRESENT ILLNESS: A 59-year-old male with a history of CLL. The patient had been on chemotherapy in the past. The patient also has a history of CVA. He presented to the Emergency Room with failure to thrive. The patient had been having poor oral intake as well as significant hypoglycemia. The patient had been on oral glipizide as an outpatient. In the Emergency Room, the patient was found to have significant renal dysfunction with an elevated BUN and creatinine as well as significant leukocytosis, and he is being seen in consultation for all the above. PAST MEDICAL HISTORY: Hypertension, hypercholesterolemia, CVA, CLL, diabetes mellitus. SOCIAL HISTORY: He lives with the family. No alcohol or tobacco use. FAMILY HISTORY: There is no renal disease in the family. ALLERGIES: There are no allergies. MEDICATIONS: Noted. REVIEW OF SYSTEMS: GENERAL: He is feeling weak and tired. HEENT: No change in vision. No change in hearing. CARDIOVASCULAR: There are no current chest pains or palpitations. PULMONARY: He denies any shortness of breath. GASTROINTESTINAL: He is tolerating a diet. MUSCULOSKELETAL: Complains of weakness. NEUROLOGIC: No seizures or focal deficits. PSYCHIATRIC: No history of hallucinations or psychosis. ENDOCRINE: Diabetes mellitus. No thyroid disease. HEME: As described above. PHYSICAL EXAMINATION: VITAL SIGNS: Blood pressure 158/76, pulse in the 90s. GENERAL: Chronically ill male, older than appearing. HEENT: Atraumatic. Pupils equal, round, and reactive to light. Oropharynx is without exudate. Nares clear. NECK: There is no JVP. There is no thyromegaly. No masses. CARDIOVASCULAR: Heart is regular. There is no S3 or S4 gallop. LUNGS: Coarse with equal thoracic movement. ABDOMEN: Soft, nontender, nontender. EXTREMITIES: No clubbing, no cyanosis. NEUROLOGICAL: He is awake. He is alert. He is oriented. SKIN: Reveals no rash, no nodules. BACK: No CVA tenderness. No back deformities. LABORATORY DATA: Sodium 140, potassium 3.7, chloride 109, bicarb 13, BUN 118, creatinine 8.5. Phosphorus 8.1. Uric acid 9.5. IMPRESSION: * Acute renal failure. * Tumor lysis. * Chronic lymphocytic leukemia. * Metabolic acidosis. PLAN: The patient's creatinine did stabilize overnight. Urine output did improve with the hydration. There is no acute need for renal replacement therapy at this time. If the patient's urine output declines or creatinine worsens, the patient will be initiated on dialysis. The patient will continue with the sodium bicarb drip. The patient will be started on allopurinol for the tumor lysis. The patient will also be started on Renvela for the hyperphosphatemia. We will continue to follow closely. The patient is to be evaluated by Oncology and we will follow while in the hospital. All labs will be repeated in the morning. TID: [id number] RECEIPT: [id number]
[2025-05-04] VITALS (23 sets, daily range): BP systolic 142–174; BP diastolic 66–94; PULSE 76–114; RESP 14–20; TEMP 97.6–99.1; O2SAT 96–97
[2025-05-04 05:11] LABS: IMMATURE GRANULOCYTE ABSOLUTE 0.24 K/uL (0-1); NUCLEATED RED BLOOD CELLS 0.1 % (0.0-0.19); PLATELET COUNT (AUTO) 273 K/uL (130-400); RED BLOOD CELL COUNT(AUTO) 2.73 MIL/uL (4.50-6.20); RED CELL DISTRIBUTION WIDTH 15.1 % (11.0-15.5)
[2025-05-04 05:13] LABS: WHITE BLOOD COUNT (AUTO) 54.3 K/uL (4.8-10.8)
[2025-05-04 05:28] LABS: GLOMERULAR FILTR. RATE CALC 7.0 mL/min (>90); GLUCOSE,RANDOM 278.0 mg/dL (70-105); PHOSPHORUS 6.1 mg/dL (2.5-4.9); SODIUM SERUM 139.0 mmol/L (136-145)
[2025-05-04 05:35] LABS: CREATININE 8.1 mg/dL (0.5-1.3); UREA NITROGEN, BLOOD 101.0 mg/dL (7-18)
[2025-05-04 05:36] LABS: EOSINOPHILS % (MANUAL) 2 % (1-6); LYMPHOCYTES % (MANUAL) 80 % (22-44); MAN.DIFF COMMENT-IMPRESSION MANUAL DIFFERENTIAL; MONOCYTES % (MANUAL) 1 % (2-9); SEGMENTED NEUTROPHILS % 17 % (40-70)
[2025-05-04 05:37] LABS: PLATELET MORPHOLOGY COMMENT ADEQUATE
[2025-05-04] MEDS: THIAMINE HCL 100 MG/ML 2ML VIAL IVP SCH (08:47)
[2025-05-04] MEDS: LACTATED RINGERS 1000ML 1,000 ML IV SCH (08:48)
--- NOTE | 2025-05-04 10:41 | PN ---
[facility] PROGRESS NOTE Date Patient Seen: May 04, 2025 Time of Visit: 10:41 Supervising Physician: Dr. Nathalie Denney Consulting Physician: Hospitalist Outpatient Specialists: [ ] Inpatient Consults: [facility] PROBLEM LIST: Severe sepsis, POA Acute metabolic encephalopathy, POA Acute kidney injury, POA Acute blood loss anemia, initial hemoglobin of 6.6, status post 1 unit PRBC Acute metabolic acidosis, POA Hyperkalemia, POA Hypertension, POA Hyperlipidemia, POA Electrolyte abnormality, POA DM type 2, POA Patient has history of lymphoma, current CT of the abdomen showed bulky retroperitoneal mesenteric gastrohepatic/nima hepatis and iliac emilia disease highly compatible with lymphoproliferative disorder with possible differential of lymphoma rather than metastatic adenopathy; Follows with Dr Forde Compression fracture of T12, seen on CT of the abdomen, POA Renal calculi, bilateral with perinephric fat stranding, POA PLAN: Admit per primary VS per unit protocol Complete bedrest for now Continue antibiotics Treat fever aggressively Monitor temperature curve Continue IV fluids Bilateral SCDs Follow up culture results Replete electrolyte accordingly Incentive spirometry Keep head of bed above 30 Aspiration precautions CBC, CMP, magnesium level daily INTERVAL HISTORY: Patient evaluated at bedside today, he is AAO x3, nephrology has discontinue the patient's bicarb drip, creatinine is improving at 8.1 today. Acidosis improved, patient's blood pressure is 163/82 with a heart rate of 95. He remains on room air. Patient has declined further workup from [place] [facility] at this time, we are requesting records from his oncologist in [place], patient is currently stable, no further complaints at this time. Patient will be downgraded to med surge for further workup as inpatient once records are received. Patient retains 600 mL overnight with a total of 2399 mL retained through the course of his admission so far. No hemodialysis indicated at this time. Patient with only 200 mL urine output over the last 24 hours. Plan Patient downgrade to med surge Continue antibiotics Patient declined workup from [place] [facility] Pending records from the patient's oncologist in [place] Follow nephrology recommendations Continue to monitor Is&Os Bicarb drip discontinued Given CT report per Radiology, patient's prognosis remains guarded. Critical Care Services to signed off REVIEW OF SYSTEMS: 12 point ROS reviewed with patient. Pertinent positives mentioned above. Otherwise negative. PHYSICAL EXAM: GENERAL: alert, weak, awake oriented x 3 HEENT: EOMI, Sclera non icteric, moist mucosa NECK: Supple, no JVD, trachea midline LUNGS: Clear breath sounds bilaterally. No wheezes HEART: Regular rate and rhythm. Normal S1 and S2, without murmurs ABD: Abdomen soft, nontender. Bowel sounds present EXT: No clubbing cyanosis or edema NEURO: Alert and oriented to person, follows commands Vital Signs (last 8hr) Date Time Temp Pulse Resp B/P (MAP) Pulse Ox O2 Delivery O2 Flow Rate FiO2 05/04/25 10:00 95 18 163/82 95 Room Air 21 05/04/25 09:00 98 20 169/85 96 Room Air 05/04/25 08:50 91 159/84 05/04/25 08:04 98.4 05/04/25 08:00 91 19 159/84 96 Room Air 05/04/25 08:00 96 Room Air* 0 05/04/25 07:00 85 17 167/66 97 Room Air 05/04/25 06:00 91 16 160/73 96 05/04/25 05:00 89 17 163/83 96 05/04/25 04:02 89 162/86 05/04/25 04:00 98.2 88 19 162/86 96 Room Air 05/04/25 04:00 96 Room Air* 0 05/04/25 03:00 80 16 156/82 96 LABS: Hematology Labs: Test 05/04/25 04:23 05/02/25 16:00 Range/Units White Blood Count 54.3 *H 4.8-10.8 K/uL Red Blood Count 2.73 L 4.50-6.20 MIL/uL Hemoglobin 8.9 L 14.0-18.0 g/dL Hematocrit 25.8 L 42-54 % Mean Corpuscular Volume 94.5 79-99 fL Mean Corpuscular Hemoglobin 32.6 27.0-33.0 pg Mean Corpuscular Hemoglobin Concent 34.5 32.0-36.0 g/dL Red Cell Distribution Width 15.1 11.0-15.5 % Platelet Count 273 130-400 K/uL Mean Platelet Volume 9.5 7.5-10.5 fL Immature Granulocyte % (Auto) 0.4 0-1 % Neutrophils (%) (Auto) 9.5 L 40.0-77.0 % Lymphocytes (%) (Auto) 83.9 H 21.0-51.0 % Monocytes (%) (Auto) 5.3 3.0-13.0 % Eosinophils (%) (Auto) 0.8 0.0-8.0 % Basophils (%) (Auto) 0.1 0.0-5.0 % Neutrophils # (Auto) 5.2 1.8-7.7 K/uL Lymphocytes # (Auto) 45.5 H 1.0-4.8 K/uL Monocytes # (Auto) 2.9 H 0.1-1.0 K/uL Eosinophils # (Auto) 0.41 0.00-0.70 K/uL Basophils # (Auto) 0.05 0.00-0.20 K/uL Absolute Immature Granulocyte (auto 0.24 0-1 K/uL Segmented Neutrophils % 17 L 40-70 % Lymphocytes % (Manual) 80 H 22-44 % Monocytes % (Manual) 1 L 2-9 % Eosinophils % (Manual) 2 1-6 % Nucleated Red Blood Cells 0.1 0.0-0.19 % Differential Comment MANUAL DIFFERENTIAL White Cell Morphology Comment See comments Platelet Morphology Comment ADEQUATE Red Blood Cell Morphology ANISO 1+ Band Neutrophils % 4 H 0-2 % Erythrocyte Sedimentation Rate 2 0-20 MM/HR Reticulocyte Count (auto) 5.73790 H 0.42-2.23 % Immature Reticulocyte Fraction 23.20 H 0.18-0.48 % Chemistry Labs: Test 05/04/25 04:23 05/03/25 04:19 05/03/25 04:18 05/02/25 21:54 Range/Units Sodium Level 139 136-145 mmol/L Potassium Level 3.5 3.5-5.1 mmol/L Chloride Level 102 101-111 mmol/L Carbon Dioxide Level 25 21-32 mmol/L Blood Urea Nitrogen 101 *H 7-18 mg/dL Creatinine 8.1 *H 0.5-1.3 mg/dL Glomerular Filtration Rate Calc 7 >90 mL/min Random Glucose 278 H 70-105 mg/dL Total Calcium 7.6 L 8.5-10.1 mg/dL Phosphorus Level 6.1 H 2.5-4.9 mg/dL Hemoglobin A1c 5.4 4.0-6.0 % Estimated Average Glucose (eAG) 108 70-126 mg/dL Magnesium Level 1.80 1.80-2.40 mg/dL Total Bilirubin 0.4 # 0.2-1.0 mg/dL Aspartate Amino Transf (AST/SGOT) 23 10-37 U/L Alanine Aminotransferase (ALT/SGPT) 20 12-78 U/L Alkaline Phosphatase 96 50-136 U/L Total Protein 5.4 L 6.0-8.3 g/dL Albumin 2.9 L 3.5-5.0 g/dL Whole Blood Glucose 118 H 70-110 MG/DL Bedside Glucose Comment Notified Nurse Test 05/02/25 12:37 Range/Units Lactic Acid Level 1.0 0.8-2.5 mmol/L Uric Acid 9.5 H 2.6-7.2 mg/dL Direct Bilirubin 0.1 0.0-0.3 mg/dL Lactate Dehydrogenase 270 H 81-234 U/L Total Creatine Kinase 105 # 21-232 U/L Troponin I High Sensitivity 50 4-75 ng/L C-Reactive Protein, Quantitative 0.90 0.5-3.0 mg/L Procalcitonin 0.19 0.05-0.5 ng/mL Coagulation Labs: Test 05/02/25 12:37 Range/Units Prothrombin Time 10.6 9.6-11.6 SEC Prothromb Time International Ratio 1.00 0.85-1.15 Activated Partial Thromboplast Time 24.9 L 26.3-35.5 SEC Fibrinogen 409 H 180-350 mg/dL D-Dimer Quantitative (PE/DVT) 857 *H 0-500 ng/mL DIAGNOSTICS / RADIOLOGY RESULTS: [ ] PLAN NEURO: Minimize central acting medications as possible. Fall Precautions. Well lighted room through the day and minimize interruptions through the night to prevent acute delirium. PULMONARY: Supplemental 02 as needed Titrate Fio2 to keep Spo2 > or = 90% DuoNebs and CPT as needed IS hourly while awake for pulmonary hygiene CARDIOVASCULAR: Follow hemodynamics. Titrate vasopressor to keep MAP >65 or systolic blood pressure >95mmHg DIPS: None LINES: PIV GI & NUTRITION: NPO Aspirations precautions Prokinetic agents and laxatives as needed KIDNEYS & ELECTROLYTES: Strict monitoring of intake and output Daily weights Avoid nephrotoxic agents Monitor electrolytes and replace as needed Goal urine output of 30mL/hr or 0.5mL/kg/hr Urine output: [ ] Fluid Balance: [ ] ENDOCRINE: Maintain blood glucose between 100-180 at all times. Insulin sliding scale for blood glucose management INFECTIOUS DISEASE: Trend temperature. Jc-culture if febrile. Micro: [ ] Antibiotics: [ ] HEMATOLOGY & COAGULATION: Monitor H&H. Keep Hgb > 7 Transfuse 1 unit of PRBC for Hgb < 7 Transfuse 1 pack of platelets of platelets < 20, 000 Watch for any signs and symptoms of bleeding SKIN: Pressure ulcer prevention per facility protocol Rehab: PT/OT Prophylaxis: GI: PPI DVT: SCDs Code Status: Full Resuscitation Disposition: ICU Other: Total patient care time exceeds 38 minutes excluding all procedures. SISI NELSON PAC May 04, 2025 10:41
--- NOTE | 2025-05-04 12:26 | PN ---
FOLLOWUP PROGRESS NOTE SUBJECTIVE: 59-year-old male with a history of known CLL. The patient presented to the hospital with acute renal failure. The patient with evidence of significant leukocytosis. Workup is consistent with tumor lysis syndrome. The patient was started on IV hydration. Urine output has improved. I did discuss the case in detail with Oncology and the patient is being seen as a followup visit for all of the above. REVIEW OF SYSTEMS: GENERAL: He is feeling improved. HEENT: No change in vision. No change in hearing. CARDIOVASCULAR: There are no current chest pains or palpitations. PULMONARY: No shortness of breath. GASTROINTESTINAL: The patient is tolerating a diet. MUSCULOSKELETAL: Complaints of weakness. PHYSICAL EXAMINATION: VITAL SIGNS: Blood pressure 159/84. Pulse is 90s. GENERAL: Chronically ill male lying in bed on the medical floor. HEENT: Atraumatic. Pupils are equal, round, and reactive to light. Oropharynx is without exudate. Nares clear. NECK: There is no JVP. No thyromegaly. CARDIOVASCULAR: Regular. There is no S3 or S4 gallop. LUNGS: Coarse with equal thoracic movement. ABDOMEN: Soft, nondistended, and nontender. EXTREMITIES: Extremities reveal no clubbing or cyanosis. NEUROLOGICAL: He is awake. Alert. LABORATORY DATA: BUN 108, creatinine is 8. Hemoglobin 8.9, hematocrit 25, white blood cell count 53,000. IMPRESSION: * Acute renal failure. * Chronic lymphocytic leukemia. * Hypertension. * Electrolyte abnormalities. PLAN: The patient continues with significant renal dysfunction. Urine output has improved overnight. The patient's acidosis is much improved. Bicarb drip can be discontinued. The patient will be started on lactated ringer at 125 mL per hour. All labs can be repeated in the a.m. Doss catheter can be removed and we will follow the patient closely. The patient's family at the bedside. Multiple questions were answered. TID: [id number] RECEIPT: [id number]
--- NOTE | 2025-05-04 18:18 | NUR ---
TRANSFER TELEPHONE REPORT GIVEN TO NURSE MARK @ THIS TIME.
--- NOTE | 2025-05-04 18:50 | NUR ---
TRANSFER PT TRANSFERRED TO [facility] 425 VIA , ACCOMPANIED BY PT'S SPOUSE. TOLERATED TRANSFER WELL. NO DISTRESS NOTED. BED @ LOWEST LEVEL. CALLBELL W/IN REACH.
[2025-05-04] MEDS: amLODIPine 5 MG TAB PO SCH (20:15)
[2025-05-04] MEDS: MEROPENEM 1GM 1 GM VIAL IVPB SCH (20:15)
[2025-05-05] VITALS (8 sets, daily range): BP systolic 146–179; BP diastolic 78–89; PULSE 100–111; RESP 16–20; TEMP 98.4–98.9; O2SAT 93–95
--- NOTE | 2025-05-05 01:40 | CONS ---
REASON FOR CONSULTATION: Evaluation and recommendation with history of CLL with renal failure. HISTORY OF PRESENT ILLNESS: This is a 59-year-old gentleman who presents to hospital with hypoglycemia, history of high blood pressure, diabetes, history of CLL/SLL, being followed in [facility]. According to the patient, he has required treatment. The last treatment for CLL/SLL was in 2021. Upon ER visit, his workup showed significantly elevated serum creatinine. Uric acid was also elevated and CT scan showed lymphadenopathy. CT scan abdomen and pelvis without contrast, 05/02/2025, bulky retroperitoneal, mesenteric, gastrohepatic, nima hepatis and iliac emilia disease, highly compatible with lymphoproliferative disorder with possible differential lymphoma. Contrast analysis of CT chest, abdomen, pelvis and histopathology correlation is suggested. Mild short segment circumferential thickening of the ascending colon likely indicative of colitis. Compressive fracture of T12. Degenerative changes L4-L5 and L5-S1. Bilateral renal calculi with perinephric fat stranding. Chest x-ray, 05/02/2025, no acute cardiopulmonary process is evident. BLOOD TEST RESULTS: WBC 64.0, hemoglobin 7.2, platelet count 329,000. Repeat CBC, 05/03/2025: WBC 52.1, hemoglobin 8.4 after red blood cell transfusion and platelet count remains at 275,000. Chemistry panel: BUN 122, creatinine 8.7, repeat BUN was 118, creatinine 8.5. Uric acid level was elevated at 9.5. Nephrology service of Dr. Patel got involved in the care. The patient is not anuric. He is making a good amount of urine. At this time, he is closely observing. Hematology/Oncology consultation has been requested. Patient with history of CLL/SLL with bulky adenopathy. No clear signs of hydronephrosis with renal failure. For further evaluation and recommendation whether the patient will need some treatment for CLL/SLL. REVIEW OF SYSTEMS: GENERAL: Denies any tiredness, weakness, or fatigue. NECK: Denies any neck pain, neck stiffness. RESPIRATORY: Denies any cough, sputum, or hemoptysis. CARDIOVASCULAR: Denies any chest pain, palpitation, or orthopnea. GASTROINTESTINAL: Denies nausea, vomiting, abdominal pain, diarrhea, constipation, hematemesis, or melena. GENITOURINARY: Denies dysuria, hematuria, or flank pain. EXTREMITIES: Denies any weakness of the arms or legs. PAST MEDICAL HISTORY: High blood pressure, diabetes, chronic lymphocytic leukemia/small lymphocytic lymphoma. PHYSICAL EXAMINATION: GENERAL: This is a very pleasant 59-year-old gentleman, not in any distress. VITAL SIGNS: Temperature 99.7, pulse 94, respirations 20, blood pressure 175/83. HEAD AND NECK: Sclerae anicteric. NECK: Supple. No lymphadenopathy. LUNGS: Good air entry bilaterally. CARDIOVASCULAR: S1, S2 audible. No added sound. ABDOMEN: Soft, nontender. No visceromegaly. EXTREMITIES: No edema. No signs of DVT. LAB RESULTS: As above. IMAGING STUDIES: CT scan abdomen and pelvis without contrast as above. Chest x-ray result as above. Ultrasound kidney, 05/02/2025: no acute renal or bladder abnormality. ASSESSMENT AND PLAN: * Chronic lymphocytic leukemia/small lymphocytic lymphoma. * No pathology available. The patient is being followed at local oncologist in [place] in [facility]. We would like to get his medical records available as soon as possible. * Signs of tumor lysis. The patient states he had a recent visit with his oncologist. His kidney functions, which were abnormal, but they were not as worse as seen here. Again, there are signs of tumor lysis noted, which indicates that the patient will need some treatment for chronic lymphocytic leukemia/small lymphocytic lymphoma. Discussed with the patient and the patient's at the bedside. * Medical records review. I will recommend obtaining medical records from [facility] where the patient is being treated. * Renal failure. As per Dr. Patel, he is supporting him with all of his renal protocol. The patient is not anuric. He would like to follow him again for the next 2-3 days to see how his kidney function improves. If kidney function improves enough, then he may be able to go to his primary oncologist in [facility] to discuss further. Above findings and recommendations were discussed with the patient and the patient's in detail. They understood my conversation very well. They understood the seriousness as well. They would like to discuss among their family members pursuing one way or another. Likely, we will follow with his oncologist in [facility]. We will continue to follow again. TID: [id number] RECEIPT: [id number] [facility]
[2025-05-05 04:06] LABS: IMMATURE GRANULOCYTE ABSOLUTE 0.19 K/uL (0-1); NUCLEATED RED BLOOD CELLS 0.0 % (0.0-0.19); PLATELET COUNT (AUTO) 252 K/uL (130-400); RED BLOOD CELL COUNT(AUTO) 2.64 MIL/uL (4.50-6.20); RED CELL DISTRIBUTION WIDTH 14.8 % (11.0-15.5)
[2025-05-05 04:11] LABS: WHITE BLOOD COUNT (AUTO) 48.7 K/uL (4.8-10.8)
[2025-05-05 04:25] LABS: GLOMERULAR FILTR. RATE CALC 7.0 mL/min (>90); GLUCOSE,RANDOM 241.0 mg/dL (70-105); PHOSPHORUS 5.9 mg/dL (2.5-4.9); SODIUM SERUM 140.0 mmol/L (136-145)
[2025-05-05 04:26] LABS: CREATININE 8.2 mg/dL (0.5-1.3); UREA NITROGEN, BLOOD 91.0 mg/dL (7-18)
--- NOTE | 2025-05-05 11:42 | PN ---
HISTORY OF PRESENT ILLNESS: This is a 59-year-old gentleman with a history of CLL, possibly SLL since 2017. He is actively following currently in surveillance. He goes to the [facility] in [place]. The patient has a history of diabetes, hyperlipidemia. He presented to the hospital with generalized malaise, hypoglycemia. The patient was found to have renal failure. The patient with prior history of chronic renal insufficiency. Uric acid level was elevated. There was a concern of tumor lysis. For that reason, hematology/oncology consultation was requested. I have seen the patient yesterday, extensively discussed with the patient, the patient's family, and we do not have any records from [facility] in [place], [place]. We did recommend it to have medical records available. At this time, the patient is actively following with the nephrology service of Dr. Patel and the patient is making urine. Creatinine has slightly improved. Chemistry panel on 05/03/2025; BUN 118, creatinine 8.5. Renal panel on 05/04/2025; BUN 101, creatinine 8.1. As stated above, the patient is making urine. REVIEW OF SYSTEMS: GENERAL: In general, he denies any tiredness, weakness or fatigue. NECK: Denies any neck pain. Neck stiffness. RESPIRATORY: Denies any cough, sputum, hemoptysis. CARDIOVASCULAR: Denies any chest pain, palpitations, or orthopnea. GASTROINTESTINAL: Denies nausea or vomiting. PHYSICAL EXAMINATION: GENERAL: On examination, this is a very pleasant 59-year-old gentleman not in any distress. VITAL SIGNS: Temperature 98.8, pulse 97, respirations 17, blood pressure 146/75. HEAD AND NECK: Sclerae anicteric. No paleness is noted. Neck supple. No lymphadenopathy. LUNGS: Good air entry bilaterally. CARDIOVASCULAR: S1, S2 audible, no added sound. ABDOMEN: Soft and nontender. Bowel sounds are present. EXTREMITIES: No edema. No signs of DVT. LABORATORY DATA: WBC 54.3, hemoglobin 8.9, platelet count 273,000. Chemistry panel as above. ASSESSMENT AND PLAN: * History of chronic lymphocytic leukemia, most likely small lymphocytic lymphoma, currently on observation, following at [facility] in [place], [place]. We would like to have his medical records available, which we do not have up until now. Discussed with the patient's nursing service to coordinate to get the medical records. * Signs of tumor lysis. Nephrology service on board. He is not anuric, making urine. Creatinine is slightly improving. Continue conservative management. Follow recommendation from the nephrology service. * Discussion about ongoing care for possibly chronic lymphocytic leukemia and small lymphocytic lymphoma. Discussed with the patient and the patient's family at the bedside that they have to follow with his oncologist upon discharge from the hospital once he is more stable. Likely, he will need some treatment as well. Continue all supportive care. TID: [id number] RECEIPT: [id number] [facility]
[2025-05-05] MEDS: amLODIPine 5 MG TAB PO ONE (15:17)
[2025-05-05] MEDS ORDERED: HYDR25TA67 PO (15:40)
--- NOTE | 2025-05-05 22:25 | PN ---
FOLLOWUP PROGRESS NOTE SUBJECTIVE: This is a 59-year-old male with a history of known CLL. The patient was initially admitted to the hospital and found to have acute renal failure consistent with tumor lysis. The patient was started on IV hydration and urine output continues to improve. He continues to have advanced renal dysfunction with an elevated BUN and creatinine. The patient is also being seen by Oncology and he is being seen as a followup visit for all the above. REVIEW OF SYSTEMS: GENERAL: The patient is feeling somewhat improved since admission. HEENT: No change in vision. No change in hearing. CARDIOVASCULAR: No current chest pains, palpitations. PULMONARY: There is no shortness of breath. GASTROINTESTINAL: He is tolerating a diet. MUSCULOSKELETAL: Complaints of weakness. PHYSICAL EXAMINATION: VITAL SIGNS: Blood pressure is 160/74. Pulse is in the 100s. GENERAL: He is a chronically ill male, older than appearing. HEENT: Head is atraumatic. Pupils are equal, round, and reactive to light. Oropharynx is without exudate. Nares clear. NECK: There is no JVP. There is no thyromegaly. No masses. CARDIOVASCULAR: Regular. There is no S3 or S4 gallop. LUNGS: Coarse with equal thoracic movement. ABDOMEN: Soft, nondistended, nontender. EXTREMITIES: Reveal no clubbing, no cyanosis. NEUROLOGICAL: He is awake. He is alert. LABORATORY DATA: BUN 91, creatinine is 8.2, sodium 140. Hemoglobin 8.5, hematocrit 25, and white cell count 48,000. IMPRESSION: * Acute on chronic renal failure. * Chronic lymphocytic leukemia. * Tumor lysis. * Electrolyte abnormalities. PLAN: The patient's urine output continues to slowly improve. The patient's creatinine continues to be quite elevated. Workup is ongoing per Oncology and we will follow closely. There is no acute need for any form of renal replacement therapy at this time. We will continue to follow closely. We will add Norvasc to the medical regimen for his hypertension. TID: [id number] RECEIPT: [id number]
--- NOTE | 2025-05-05 23:14 | PN ---
HISTORY OF PRESENT ILLNESS: This is a 59-year-old gentleman with a history of CLL, possibly SLL since 2017. He is following an Outpatient Oncology Clinic in [facility]. The patient presents to the hospital with generalized malaise, hypoglycemia, found to have renal failure. The patient apparently has a history of chronic renal insufficiency as well. The patient is currently following with the Nephrology Service, conservatively managed at this time. We have requested medical records, which is not available as yet. REVIEW OF SYSTEMS: GENERAL: In general, he denies any weakness, tiredness, or fatigue. NECK: Denies any neck pain or neck stiffness. RESPIRATORY: Denies any cough, sputum or hemoptysis. CARDIOVASCULAR: Denies any chest pain, palpitations, orthopnea. GASTROINTESTINAL: Denies nausea or vomiting. PHYSICAL EXAMINATION: GENERAL: On examination, this is a 59-year-old gentleman not in any distress. VITAL SIGNS: Temperature 98.6, pulse 104, respirations 18, blood pressure 169/89. HEAD AND NECK: Sclerae anicteric. Neck is supple. No lymphadenopathy. LUNGS: Good air entry bilaterally. CARDIOVASCULAR: S1, S2 audible with no added sounds. ABDOMEN: Soft and nontender. EXTREMITIES: No edema. LAB REVIEW: WBC 48.7, hemoglobin 8.5, platelet count 252,000. BUN 91, creatinine 8.2. ASSESSMENT AND PLAN: * History of possible chronic lymphocytic leukemia/small lymphocytic lymphoma. No records available. The patient apparently has signs of tumor lysis. Discussed with the patient and the patient's family at the bedside. We need to have his records available and at the least, once he is discharged from the hospital, he needs to follow with his oncologist possibly for treatment. * Signs of tumor lysis. Nephrology service on board. Creatinine is still elevated but stable. Conservatively managed at this time. He is not requiring hemodialysis. Continue all supportive care. TID: [id number] RECEIPT: [id number] [facility]
[2025-05-06] VITALS (7 sets, daily range): BP systolic 160–174; BP diastolic 78–89; PULSE 100–111; RESP 17–20; TEMP 97.5–98.7; O2SAT 97
[2025-05-06] MEDS ORDERED: amLODIPine 5 MG TAB PO SCH (09:00)
[2025-05-06] MEDS: amLODIPine 5 MG TAB PO SCH (09:32)
[2025-05-06] MEDS: LACTATED RINGERS 1000ML 1,000 ML IV SCH (11:37)
--- NOTE | 2025-05-06 13:38 | NUR ---
Physcial Therapy Note patient will be endorsed to nursing; safe to ambulate on his own Patient to be removed from PT roster
[2025-05-06 16:11] LABS: IMMATURE GRANULOCYTE ABSOLUTE 0.19 K/uL (0-1); NUCLEATED RED BLOOD CELLS 0.0 % (0.0-0.19); PLATELET COUNT (AUTO) 244 K/uL (130-400); RED BLOOD CELL COUNT(AUTO) 2.64 MIL/uL (4.50-6.20); RED CELL DISTRIBUTION WIDTH 14.4 % (11.0-15.5)
[2025-05-06 16:21] LABS: WHITE BLOOD COUNT (AUTO) 49.3 K/uL (4.8-10.8)
[2025-05-06 16:46] LABS: ASPARTATE AMINOTRANSFERASE 19.0 U/L (10-37); GLOMERULAR FILTR. RATE CALC 7.0 mL/min (>90); GLUCOSE,RANDOM 250.0 mg/dL (70-105); SODIUM SERUM 135.0 mmol/L (136-145); TOTAL PROTEIN, SERUM 5.3 g/dL (6.0-8.3)
[2025-05-06 16:48] LABS: UREA NITROGEN, BLOOD 80.0 mg/dL (7-18)
[2025-05-06 16:49] LABS: CREATININE 8.0 mg/dL (0.5-1.3)
[2025-05-06 17:04] LABS: EOSINOPHILS % (MANUAL) 2 % (1-6); LYMPHOCYTES % (MANUAL) 79 % (22-44); MAN.DIFF COMMENT-IMPRESSION MANUAL DIFFERENTIAL; MONOCYTES % (MANUAL) 2 % (2-9); PLATELET MORPHOLOGY COMMENT ADEQUATE; SEGMENTED NEUTROPHILS % 17 % (40-70); WBC MORPHOLOGY SMUDGE CELLS 2+
--- NOTE | 2025-05-06 19:44 | PN ---
FOLLOWUP PROGRESS NOTE SUBJECTIVE: A 59-year-old male with a history of CLL. He initially presented with significant leukocytosis. The patient has acute renal failure consistent with tumor lysis. He continues with improved urine output with the IV hydration and he is being seen as a followup visit for all the above. I did discuss previously with Oncology. REVIEW OF SYSTEMS: GENERAL: He is feeling weak and tired. HEENT: No change in vision. No change in hearing. CARDIOVASCULAR: There are no current chest pains or palpitations. PULMONARY: Denies any shortness of breath. GASTROINTESTINAL: He is tolerating a diet. MUSCULOSKELETAL: Complains of weakness. PHYSICAL EXAMINATION: VITAL SIGNS: Blood pressure 169/90. Pulse 100. GENERAL: Chronically ill male, much older than appearing. HEENT: Head is atraumatic. Pupils are equal, round, and reactive to light. Oropharynx is without exudate. Nares are clear. NECK: There is no JVP. There is no thyromegaly. No mass. CARDIOVASCULAR: Regular. There is no S3 or S4 gallop. LUNGS: Coarse with equal thoracic movement. ABDOMEN: Soft, nondistended, and nontender. EXTREMITIES: No clubbing or cyanosis. NEUROLOGICAL: He is awake and alert. LABORATORY DATA: BUN 91. Creatinine is 8. IMPRESSION: * Acute renal failure. * Tumor lysis syndrome. * Chronic lymphocytic leukemia. * Hypertension. PLAN: The patient's creatinine continues to be quite elevated. Urine output remains adequate with the IV hydration. All labs can be repeated in the a.m. The patient is also being seen by Oncology. We will continue to follow closely. The patient and family were at the bedside. Multiple questions were all answered. TID: [id number] RECEIPT: [id number]
--- NOTE | 2025-05-07 01:28 | PN ---
HISTORY OF PRESENT ILLNESS: This is a 59-year-old gentleman with a history of CLL, possibly SLL since 2017. He is following an outpatient Oncology clinic in [facility]. He presents to the hospital with generalized weakness and fatigue, found to have renal failure with a creatinine of 8.5. Nephrology service on board. Uric acid was elevated. He has signs of auto tumor lysis. Currently actively following with a Nephrology service. He is not requiring dialysis, making good urine. REVIEW OF SYSTEMS: GENERAL: He denies any tiredness, weakness, or fatigue. NECK: He denies any neck pain or neck stiffness. RESPIRATORY: Denies any cough, sputum, or hemoptysis. CARDIOVASCULAR: Denies any chest pain, palpitations, or orthopnea. GASTROINTESTINAL: Denies nausea or vomiting. PHYSICAL EXAMINATION: GENERAL: This is a 59-year-old gentleman not in any distress. VITAL SIGNS: Temperature 98.2, pulse 105, respirations 18, blood pressure 160/80. HEAD AND NECK: Sclerae anicteric. Neck is supple. No lymphadenopathy. LUNGS: Good air entry bilaterally. CARDIOVASCULAR: S1 and S2 audible. No added sounds. ABDOMEN: Soft, nontender. Bowel sounds are present. EXTREMITIES: No edema. No signs of DVT. ASSESSMENT AND PLAN: 1. The patient with a possible history of chronic lymphocytic leukemia/small lymphocytic lymphoma, was treated in 2001 for 6 months of treatment. Details of treatment is not available. Pathology reports are not available. The patient is following at outside oncology service at [facility]. Oncology care: I do not have his records available yet. The patient states he was seen at [facility] here locally and the patient was seen by Dr. Hernandez, but the patient at that time wanted a second opinion from [facility] another place. There is a little bit of urgency of patients to be seen with the medical records and I think [facility] here may have some records available to make a decision in regards to oncology treatment. To that effect, I have again discussed with the patient and the patient's at the bedside if it will be okay for him to be seen by [facility]. Again, would not hurt getting their opinion, getting the medical records, previous treatment profile, and baseline blood tests and imaging studies results. The patient and the patient's agreed. Discussed with the patient's nursing service to communicate with the oncologist, Dr. Hernandez, if possible, if he has more insight about the patient's medical information to make some further recommendation. The patient is willing and open to discuss. 2. Renal insufficiency. Nephrology service following. The patient is not anuric. He is making a good amount of urine. We need his labs repeated today. Discussed with the nursing service. TID: [id number] RECEIPT: [id number]
[2025-05-07 03:28] VITALS: BP 161/82; PULSE 105; RESP 18; TEMP 98.8
[2025-05-07 03:53] LABS: IMMATURE GRANULOCYTE ABSOLUTE 0.18 K/uL (0-1); NUCLEATED RED BLOOD CELLS 0.0 % (0.0-0.19); PLATELET COUNT (AUTO) 254 K/uL (130-400); RED BLOOD CELL COUNT(AUTO) 2.50 MIL/uL (4.50-6.20); RED CELL DISTRIBUTION WIDTH 14.4 % (11.0-15.5)
[2025-05-07 04:04] LABS: WHITE BLOOD COUNT (AUTO) 47.7 K/uL (4.8-10.8)
[2025-05-07 04:15] LABS: GLOMERULAR FILTR. RATE CALC 7.0 mL/min (>90); GLUCOSE,RANDOM 150.0 mg/dL (70-105); PHOSPHORUS 5.1 mg/dL (2.5-4.9); SODIUM SERUM 138.0 mmol/L (136-145)
[2025-05-07 04:19] LABS: CREATININE 8.1 mg/dL (0.5-1.3); UREA NITROGEN, BLOOD 79.0 mg/dL (7-18)
[2025-05-07 08:00] VITALS: BP 174/71; PULSE 100; RESP 20; TEMP 98.5; O2SAT 95
[2025-05-07 12:00] VITALS: BP 165/66; PULSE 112; RESP 20; TEMP 98.4
[2025-05-07] MEDS ORDERED: ALLO100T PO (14:52)
[2025-05-07] MEDS ORDERED: sevELAMer HCL 800 MG TAB PO (14:52)
[2025-05-07] MEDS ORDERED: TAMS-55 PO (14:52)
[2025-05-07 14:53] VITALS: BP 165/66
--- NOTE | 2025-05-07 15:03 | DS ---
Discharge Summary Hospital Course Summary: DATE OF ADMISSION:[05/02/25] DATE OF DISCHARGE:[05/07/25] DISPOSITION:[Home] CONDITION:[Medically stable] CONSULTANTS:[Sr. Consultant, utility mechanic] FOLLOW UP APPOINTMENTS:[PCP2 to 3 days technical support specialist within one week. Correspondent within one week.] PROCEDURES:[None] IMAGING: report attached to summary MICROBIOLOGY: report attached to summary ACTIVITY:[Independent] HOME MEDICATIONS: see med recc NEW MEDICATIONS:[See med rec] EMERGENCY INSTRUCTIONS: The patient was instructed to present to the nearest Emergency departmentr or call 911 once their symptoms will return or worsen Supply Chain Technician(s): Patient is a 59 years old male with underlying history of chronic kidney d issuly, previous history of CLL in 2017 status post chemotherapy in [place], [place], history of stroke in 2016 on chronic outpatient treatment with Plavix, type 2 diabetes mellitus, BPH, hyperlipidemia, who presented to the ER for further evaluation of generalized malaise and low blood sugar. Patient stated that he was feeling weak and EMS was called who noticed that his blood sugar was in the 40s. Patient was brought to the ER for further evaluation of severe hypoglycemia hospitalization patient underwent chest x-ray which was negative renal ultrasound negative CT abdomen/pelvis showed lymphoma and a compression fracture of T4 with the bilateral renal calculi colitis. He is oncologist was consulted but since is on vacation Dr. Rivera saw the patient and recommended that the patient follows up outpatient with his utility mechanic within one week. We also consulted Dr. Patel technical support specialist for [facility] on CKD who recommended no dialysis at this moment and follow up outpatient with a Dr. Condon in one week. We also recommend that patient follow ups with the PCP in2 to 3 days. Patient denies any shortness of breath, nausea, vomiting, abdominal pain or chest pain or any other discomfort at this moment. Patient stated that he would like to be discharged home as soon as possible and he already has a appointment on Saturday with his technical support specialist. Procedure(s): REVIEW OF SYSTEMS CONSTITUTIONAL: Denies any Malaise, chills NEUROLOGICAL: Denies headache, amaurosis fugax, motor weakness, sensory deficit, vertigo/spinning sensation, gait abnormalities, or tremors. ENT: No hearing loss, otalgia, otorrhea, rhinitis, rhinorrhea, hoarseness, or sore throat. CARDIOVASCULAR: Denies any exertional angina, dyspnea on exertion, orthopnea, paroxysmal nocturnal dyspnea, palpitations, life-threatening arrhythmias, claudication. PULMONARY: Denies any shortness of breath, cough, phlegm/sputum, hemoptysis, pleuritic chest pain. SLEEP: Denies morning headaches, daytime somnolence or napping. Denies difficulty falling asleep, staying asleep, waking from sleep. Denies knowledge of snoring. GASTROINTESTINAL: Denies any type of dysphagia to either liquids or solids. Denies nausea, vomiting, pyrosis, early satiety, abdominal pain, diarrhea, con stipation, or changes in stool consistency or caliber. Denies coffee-ground emesis, hematemesis, hematochezia, or melanotic stools. GENITOURINARY: Denies frequency, urgency, nocturia, hematuria or incontinence (Storage/Irritative symptoms.) Low urinary stream, straining to void, urinary intermittency or hesitancy, splitting of the voiding stream, terminal dribbling. ENDOCRINOLOGIC: Denies polyuria, polydipsia, polyphagia or heat/cold intolerances. HEMATOLOGIC: reports having hx of leukemia ONCOLOGIC: Denies personal history of malignancy. DERMATOLOGIC: Denies rashes or pruritus. PSYCHIATRIC: Denies any suicidal or homicidal ideation. Denies hallucinations. Assessment/Plan: ASSESSMENT: Severe leukocytosis with lymphocytosis with history of chronic lymphocytic leukemia, POA Bulky intra-abdominal and retroperitoneal lymphadenopathy, POA Severe acute kidney injury with history of chronic kidney disease, POA Rule out tumor lysis syndrome, POA Acute on chronic anemia, POA Rule out occult sepsis, POA Severe hypoglycemia secondary to sulfonylurea use as outpatient, POA History of chronic kidney disease, POA History of type 2 diabetes mellitus, POA History of previous stroke maintained on chronic outpatient treatment with Plavix, POA Hypertension, POA Hyperlipidemia, POA PLAN: Patient will be admitted to ICU Consultation with Hematology will be requested urgently, patient's case was discussed with Dr. Maya on phone who is covering for Dr. Forde , plan is for patient to receive 1 unit of leuko reduced PRBC transfusion, Hematology will follow up in the morning, concern is for reoccurrence of chronic lymphocytic leukemia, patient with significant intra-abdominal lymphadenopathy as well, uric acid is significantly high, we will need to rule out tumor lysis syndrome, there was no hemolysis noted with Aleida test noted to be negative We will transfuse to maintain hemoglobin greater than seven Monitor closely for signs of active bleeding We will hold Plavix We will start patient on sodium bicarb drip at 75 mL/hours Doss catheter will be placed Avoid any nephrotoxic medication, avoid NSAIDs and IV contrast We will start patient on broad-spectrum antibiotics with linezolid and Merrem, antibiotics can be stopped a deescalated in 48-72 hours based on culture report, blood cultures will be obtained Abdominal CT shows findings of significant intra-abdominal and retroperitoneal lymphadenopathy, this could be secondary to reoccurrence of CLL, we will need to rule out high grade lymphoma especially Haines's transformation, as well We will request origin consultation with Nephrology, patient's case was discussed with Dr. Patel already Patient's case was discussed with ICU service, H&H and BMP will be trended closely Patient will receive a dose of Lokelma for management of hyperkalemia All labs will be repeated in the morning, we will see how patient progresses in the next 48-72 hours, we will follow up on further input of the consultants in the case Blood glucose will be monitored closely, glipizide to be stopped as outpatient due to underlying renal failure and concerns for sulfonylurea toxicity with advanced renal failure We will keep patient on GI prophylaxis with Protonix, DVT prophylaxis with SCDs Date of service: 05/02/2025 Condition remains critical, critical care minutes: 45 minutes Plan of care was discussed with patient and at bedside, Filiberto Mei MD Advanced Care Planning: Which of the following were discussed: Hospice care: Yes __ No _x_ Therapeutic options: Yes _x_ No __ Advance directives: Yes _x_ No __ Other discussions: Discussed with who?: Patient Voluntary nature of this service was explained to the patient? Yes _x_ No __ Amount of time spent: 20 minutes Home Medications: Reported Medications Hydralazine HCl (Hydralazine HCl) 25 Mg Tablet, 1 TAB PO BID, TAB 0 Refills 05/05/25 Amlodipine Besylate (Amlodipine Besylate) 2.5 Mg Tablet, 1 TAB PO DAILY for 30 Days, #30 TAB 0 Refills 05/02/25 Torsemide (Torsemide) 20 Mg Tablet, 1 TAB PO DAILY for 30 Days, #30 TAB 0 Refills 05/02/25 Glipizide (Glipizide) 5 Mg Tablet, 2 TAB PO DAILY for 30 Days, #30 TAB 0 Refills 05/02/25 Tamsulosin HCl (Flomax) 0.4 Mg Cap.er.24h, 0.4 MG PO DAILY, CAPSULE.DR 05/02/25 Clopidogrel Bisulfate (Plavix) 75 Mg Tablet, 1 TAB PO DAILY for 30 Days, #30 TAB 0 Refills 05/02/25 Atorvastatin Calcium (LIPITOR) 40 Mg Tablet, 1 TAB PO DAILY for 30 Days, #30 TAB 0 Refills 05/02/25 Discontinued Reported Medications Amlodipine Besylate (Amlodipine Besylate) 2.5 Mg Tablet, 1 TAB PO DAILY for 30 Days, #30 TAB 0 Refills 05/02/25 Time spent arranging discharge: 31-60 minutes ATTESTATION BY PHYSICIAN I have seen and examined the patient. I reviewed the documentation, medical decision making, and treatment plan as noted by the mid-level provider above. I agree with the findings and plan of care. BETHANY Ulloa MD MOBILITY SPECIALIST May 07, 2025 15:02
--- NOTE | 2025-05-07 15:45 | NUR ---
DISCHARGE INSTRUCTIONS DISCUSSED WITH PATIENT AND AT BEDSIDE. MADE AWARE OF SCHEDULED APPOINTMENT WITH DR. SCOTT FOR NEPHROLOGY AND PRIMARY CARE, MADE AWARE TO CALL OFFICE OF DR. AYALA ON SATURDAY FOR APPOINTMENT ARRANGEMENT DUE TO OFFICE CLOSED TODAY, VERBALIZED UNDERSTANDING. MEDICATION LIST DISCUSSED, MADE AWARE OF CHANGES TO CURRENT MEDICATION LIST AND NEW MEDICATIONS TO BE TAKING, VERBALIZED UNDERSTANDING. RUE MIDLINE DISCONTINUED, NO BLEEDING/SWELLING NOTED, TEGADERM IN PLACE AND PATIENT AND INSTRUCTED ON REMOVAL.
--- NOTE | 2025-05-07 22:41 | PN ---
FOLLOWUP PROGRESS NOTE SUBJECTIVE: This is a followup progress note of a 59-year-old male with a history of known CLL. The patient had been seen by Oncology in the past. He presented to the hospital with acute renal failure. The patient with evidence of tumor lysis. The patient does have advanced renal dysfunction with an elevated BUN and creatinine. The patient continues with good urine output with the IV fluids. The patient's case was discussed in detail with Oncology and he is being seen as a followup visit for all the above. REVIEW OF SYSTEMS: GENERAL: He is feeling weak and tired. HEENT: No change in vision. No change in hearing. CARDIOVASCULAR: There are no current chest pains or palpitations. PULMONARY: Denies any shortness of breath. GASTROINTESTINAL: The patient is tolerating a diet. MUSCULOSKELETAL: Complains of weakness. PHYSICAL EXAMINATION: VITAL SIGNS: Blood pressure is 164/78, pulse in the 100s. GENERAL: He is a chronically ill male, lying in bed on the medical floor. HEENT: Head is atraumatic, pupils are equal, round and reactive to light. Oropharynx is without exudate. Nares clear. NECK: There is no JVP. There is no thyromegaly, no mass. CARDIOVASCULAR: Regular. There is no S3 or S4 gallops. LUNGS: Coarse with equal thoracic movement. ABDOMEN: Soft, nondistended, nontender. EXTREMITIES: There is minimal edema. LABORATORY DATA: Hemoglobin 8, hematocrit 24, white count 47,000. BUN 79, creatinine 8. IMPRESSION: * [id number] renal failure. * Tumor lysis. * Chronic lymphocytic leukemia. * Electrolyte abnormalities. * Anemia. PLAN: I did have a long discussion with the patient and family. The patient is refusing any form of renal replacement therapy. The patient continues with elevated leukocytosis secondary to CLL. I would recommend discharge to home. The patient without any need for acute dialysis. The patient will need close followup in the Renal Clinic. The patient will also need to follow up with Oncology as an outpatient in regards to his treatment of the CLL. We will continue to follow closely. Once the patient is discharged, he can follow up in the renal clinic. TID: [id number] RECEIPT: [id number]
[2025-05-12] MEDS ORDERED: LINA5TAB PO (16:06)
[2025-05-12] MEDS ORDERED: HYDR25 PO (16:37)
[2025-05-12] MEDS ORDERED: CARV12.580 PO (16:37)
[2025-05-12] MEDS ORDERED: AMLO5TAB4 PO (16:37)
== END 2025-05-07 16:05 | disposition home or self-care (01) | DRG 682 ==
LOC: EDH 11:36 → EDHIP 14:27 → 2BH 20:33 → 4DH 05-04 18:49
PROVIDERS: ADMIT Internal Medicine; ATTEND Internal Medicine
PROC: 30233N1 Transfusion of Nonautologous Red Blood Cells into Peripheral Vein, Percutaneous Approach (ICD-10-PCS; principal; 2025-05-02)
DX: N17.9 Acute kidney failure, unspecified (principal); G93.41 Metabolic encephalopathy; E87.20 Acidosis, unspecified; D62 Acute posthemorrhagic anemia; M48.54XA Collapsed vertebra, not elsewhere classified, thoracic region, initial encounter for fracture; R62.7 Adult failure to thrive; C91.10 Chronic lymphocytic leukemia of B-cell type not having achieved remission; E11.22 Type 2 diabetes mellitus with diabetic chronic kidney disease; I12.9 Hypertensive chronic kidney disease with stage 1 through stage 4 chronic kidney disease, or unspecified chronic kidney disease; N18.9 Chronic kidney disease, unspecified; E88.3 Tumor lysis syndrome; K52.9 Noninfective gastroenteritis and colitis, unspecified; E87.5 Hyperkalemia; E11.649 Type 2 diabetes mellitus with hypoglycemia without coma; N40.0 Benign prostatic hyperplasia without lower urinary tract symptoms; T38.3X5A Adverse effect of insulin and oral hypoglycemic [antidiabetic] drugs, initial encounter; E78.00 Pure hypercholesterolemia, unspecified; N20.0 Calculus of kidney; Z79.84 Long term (current) use of oral hypoglycemic drugs; Z79.899 Other long term (current) drug therapy; Z86.73 Personal history of transient ischemic attack (TIA), and cerebral infarction without residual deficits; Z92.21 Personal history of antineoplastic chemotherapy; Z68.26 Body mass index [BMI] 26.0-26.9, adult
CPT/HCPCS: 36415; 36556; 36600; 71045; 74176; 76770; 80048; 80053; 80076; 80305; 81001; 82435; 82550; 82570; 82803; 82947; 82948; 83010; 83036; 83605; 83615; 83735; 84100; 84132; 84145; 84295; 84300; 84484; 84540; 84550; 85014; 85018; 85025; 85045; 85060; 85378; 85384; 85610; 85651; 85730; 86140; 86850; 86880; 86900; 86901; 86923; 87040; 88184; 88185; 88189; 93005; 96360; 99291; C1894; G0378; J0360; J2020; J2185; J2470; J2543; J3411; J3490; J7030; J7070; J7120; P9016; C1751